=== PATIENT | male | born 1945 | race Caucasian/White ===

== ENCOUNTER 2016-11-15 21:33 | Inpatient (IN) ==
--- NOTE | 2016-11-15 22:03 | Emergency Department Note ---
Disposition Clinical Impression: Pancreatitis Qualifiers: Chronicity: acute Pancreatitis type: unspecified pancreatitis type Acute pancreatitis complication: unspecified Qualified Code(s): K85.90 - Acute pancreatitis without necrosis or infection, unspecified Abdominal pain Qualifiers: Abdominal location: epigastric Qualified Code(s): R10.13 - Epigastric pain Disposition: Admitted As Inpatient Condition: Fair Time of Disposition: 23:58 Abdominal Pain HPI - General Chief Complaint: ED Abdominal Pain Stated Complaint: Abdominal Pain Time Seen by Provider: 11/15/16 21:37 Source: patient, EMS Mode of arrival: EMS Limitations: no limitations Nursing Notes Reviewed: Yes Vital Signs Reviewed: Yes - History of Present Illness HPI Narrative: Patient presents to the [facility] with the chief complaint of abdominal pain. Patient reports that he had the onset of epigastric abdominal pain approximately 2 days ago. States it has been intermittent since then, mainly epigastric and right upper quadrant, sometimes radiating to the back, associated with intense nausea but no vomiting. Some abdominal distention and foul smelling belching. No diarrhea, melena or hematochezia. Denies any fevers , chills, chest pain, worsening shortness of breath from baseline, worsening pain or swelling in his legs, difficulty urinating, hematuria, penile discharge or testicular pain. Had lab work at the [facility], which included a troponin of 0.00, WBC 12.4, hemoglobin 13.4, platelets 251, CK 46, AST 14, a LT 18, total bilirubin 0.4, direct bilirubin 0.1, alkaline phosphatase 105, albumin 3.1, lipase 326, sodium 145, potassium 4, chloride 104, CO2 33, glucose 128, BUN/creatinine 20, creatinine 1.48. Patient does have a history of nephrectomy secondary to renal cancer. No other known cancers. Does have a history of COPD, CHF, hypertension and diabetes. Reports of these are all fairly well-controlled, and his main complaint is this epigastric abdominal pain and nausea. States he has not had much of an appetite, and tried to eat some toast this morning and got very nauseated, but has been unable to throw up. Patient is also on Coumadin for history of A. fib. Pain Scale: 2 - Related Data Allergies Allergy/AdvReac Type Severity Reaction Status Date / Time bupropion Allergy Hives Verified 11/15/16 21:36 Constitutional: Reports: other (Decreased appetite). Denies: fever Cardiovascular: Denies: chest pain Respiratory: Reports: dyspnea (Chronic, baseline) Gastrointestinal: Reports: abdominal pain, nausea. Denies: vomiting, diarrhea, constipation, hematemesis, melena, hematochezia Genitourinary: Denies: dysuria, testicular pain Musculoskeletal: Denies: back pain, neck pain Integumentary: Denies: rash Neurological: Denies: headache Endocrine: Denies: fatigue Abdominal Pain PMH - Past Medical History Medical history: Reports: CHF, COPD, diabetes, myocardial infarction Male Surgical History: Reports: appendectomy, arthroscopy Psychiatric history: Reports: no psych history - Social History Smoking status: Former smoker Alcohol use: Reports: none Drug use: Reports: none Physical Exam - General Limitations: no limitations General appearance: alert, in no apparent distress, obese - Head Head exam: atraumatic, normocephalic, normal inspection - Eye Eye exam: Present: normal appearance, PERRL, EOMI - ENT ENT exam: mucous membranes dry - Chest Chest inspection: Present: normal inspection, symmetric chest wall rise - Respiratory Respiratory exam: Present: normal lung sounds bilaterally (Decreased although symmetric). Absent: respiratory distress - Cardiovascular Cardiovascular exam: Present: regular rate, irregular rhythm - Abdominal Exam Abdominal exam: Present: soft, tenderness (Epigastric ), distention, diminished bowel sounds, organomegaly (hepatomegaly ). Absent: guarding, rebound, rigidity , normal bowel sounds, Ovalle's sign - Extremities Exam Extremities exam: Present: normal inspection, full ROM, pedal edema (Chronic 1-2 + pitting). Absent: tenderness - Neurological Exam Neurological exam: Present: alert, oriented X3 - Skin Skin exam: Present: warm, dry, intact, normal color Course Course Narrative: 71-year-old male presenting with epigastric pain and nausea for the last 2 days. Does have a history of A. fib, on Coumadin, coronary artery disease, diabetes, hypertension, status post nephrectomy from renal carcinoma, COPD. Patient with slightly elevated lipase at outside facility, it could be related to pancreatitis. We will get a CT abdomen and pelvis. EKG is performed at the [facility] and showed A. fib, rate 75, QTC 446, left axis deviation, will repeat here. Troponin was normal, do not think this is related to cardiac pathology. Lab work was artery completed at the [facility], however, we will add on coags as this was not checked. We will also give antiemetics. - Reevaluation(s) Reevaluation #1: CT consistent with pancreatitis and possible cystic neoplasm in the pancreatic tail. Will admit to the hospitalist service. Patient's nausea is better, but is having abdominal pain. Will order more pain medication at this time. Vital Signs Temperature 98.3 F 11/15/16 21:36 Pulse Rate 74 11/15/16 21:36 Respiratory Rate 18 11/15/16 21:36 Blood Pressure 112/66 11/15/16 21:36 O2 Sat by Pulse Oximetry 100 11/15/16 21:36 Temperature 98.3 F 11/15/16 21:36 Pulse Rate 76 11/16/16 00:32 Respiratory Rate 17 11/16/16 00:32 Blood Pressure 120/47 11/16/16 00:32 O2 Sat by Pulse Oximetry 95 11/16/16 00:32 Oxygen Delivery Oxygen Delivery Nasal Cannula Abdominal Pain - Lab Data Lab Results 11/15/16 11/15/16 Range/Units 22:16 23:18 PT 23.5 H (9.4-12.1) Seconds INR 2.1 APTT 46.6 H (26.0-36.0) Seconds Urine Color Yellow (Yellow) Urine Clarity Clear (Clear) Urine pH 7.5 (5.0-8.0) pH Units Ur Specific [place] 1.018 (1.010-1.025) Urine Protein Negative (Neg-Trace) mg/dL Urine Glucose (UA) Normal (Normal) mg/dL Urine Ketones Negative (Negative) mg/dL Urine Blood Negative (Negative) Urine Nitrite Negative (Negative) Urine Bilirubin Negative (Negative) Urine Urobilinogen Normal (Normal) mg/dL Ur Leukocyte Esterase Negative (Negative) Ur Culture Indicated? NO (NO) S.B.Emeli - Bimal Situation: Demographics, MOA Background: Presenting Complaint, Relevant PMH, Meds, & Allergies Assessment: Vital Signs, Course and respsone to treatment, Exam Concerns, Patient/Family Expectation, Pertinant Lab Results, Outstanding Labs Recommendation: Barrier(s) to disposition, Recommendation based on pending studies, treatments, or consults S.BGina Report Given to: Dr. Earl Wallis Repor Time: 23:58 Attestation Statement - Attestation Attestation: I, Rajan Zuniga MD, personally performed a history and physical exam of the patient and discussed their management with the resident. I reviewed the resident's note and agree with the documented findings, medical decision making , and plan of care. 71-year-old male referred to the emergency department from the [facility] for further evaluation of epigastric abdominal pain. Patient has had the pain several days. Pain is associated with nausea but no actual vomiting. The pain does radiate through to the back. No fever. On examination patient is a well-developed morbidly obese elderly male in no acute distress. He is alert and oriented 3. There is no cyanosis or diaphoresis. Breath sounds are equal bilaterally. Heart irregularly irregular. Abdomen soft with normal bowel sounds. Moderate epigastric tenderness with no guarding or rebound tenderness. [facility]ly elevated lipase. CT of the abdomen and pelvis obtained here and was consistent with focal pancreatitis in the head of the pancreas. There was also a lesion in the tail of the pancreas suspicious for cystic neoplasm. The hospitalist, Dr. Elliott, was consulted and accepted admission of the patient.
[2016-11-15] MEDS ORDERED: Ondansetron 4 MG/2 ML VIAL IVP ONE (22:32)
[2016-11-15 22:33] LABS: INR 2.1; Prothrombin Time 23.5 Seconds (9.4-12.1)
[2016-11-15 22:35] LABS: Activated Partial Thrombo Time 46.6 Seconds (26.0-36.0)
[2016-11-15 23:38] LABS: Bilirubin,Urine Negative (Negative); Blood,Urine Negative (Negative); Clarity,Urine Clear (Clear); Color,Urine Yellow (Yellow); Glucose,Urine (UA) Normal (Normal); Ketones,Urine Negative (Negative); Leukocyte Esterase,Urine Negative (Negative); Nitrite,Urine Negative (Negative); PH,Urine 7.5 pH Units (5.0-8.0); Protein,Urine Negative (Neg-Trace); Specific Gravity,Urine 1.018 (1.010-1.025); Urobilinogen,Urine Normal (Normal)
[2016-11-15] MEDS ORDERED: *HR* HYDROmorphone (PF) 1 MG/ML SYRINGE IVP ONE (23:38)
[2016-11-16] MEDS ORDERED: Naloxone 0.4 MG/ML INJ IVP PRN ×2 (01:38→01:44)
[2016-11-16] MEDS ORDERED: Acetaminophen 325 MG TABLET PO PRN (01:38)
[2016-11-16] MEDS ORDERED: Ondansetron 4 MG/2 ML VIAL IVP PRN (01:38)
[2016-11-16] MEDS ORDERED: *HR* OxyCODONE Immed Rel 5 MG TABLET PO PRN (01:38)
[2016-11-16] MEDS ORDERED: *HR* HYDROmorphone (PF) 1 MG/ML SYRINGE IVP PRN (01:38)
[2016-11-16] MEDS ORDERED: D5% in Water 1,000 ML IVC PRN (01:44)
[2016-11-16] MEDS ORDERED: Dextrose Gel 15 GM PO PRN ×2 (01:44)
[2016-11-16] MEDS ORDERED: *HR* Dextrose 50 % in Water (Syg) 50 ML SYRINGE IVP PRN (01:44)
--- NOTE | 2016-11-16 01:54 | Internal Med History&Physical ---
Date of Encounter: 11/16/16 Time of Encounter: 01:49 Assessment and Plan (1) Acute generalized abdominal pain Current visit: Yes Status: Acute . (2) Acute pancreatitis without necrosis or infection, unspecified Current visit: Yes Status: Acute . 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 (4) Type 2 diabetes mellitus Current visit: Yes Status: Chronic . Qualifiers: Diabetes mellitus complication status: with unspecified complications Diabetes mellitus terminal operator insulin use: without alf use Qualified Code( s): E11.8 - Type 2 diabetes mellitus with unspecified complications (5) Morbid obesity with BMI of 50.0-59.9, adult Current visit: Yes Status: Chronic . (6) ANTONIO (obstructive sleep apnea) Current visit: Yes Status: Chronic . (7) Chronic pain associated with significant psychosocial dysfunction Current visit: Yes Status: Chronic . (8) COPD (chronic obstructive pulmonary disease) Current visit: Yes Status: Chronic . Qualifiers: COPD type: unspecified COPD Qualified Code(s): J44.9 - Chronic obstructive pulmonary disease, unspecified (9) Paroxysmal a-fib Current visit: Yes Status: Chronic . (10) Chronic anticoagulation Current visit: Yes Status: Chronic . Internal Medicine - H&P: HPI Chief complaint: Acute abdominal pain Admitted From: Hospital to Hospital Transfer (Hospital transfer [facility] urgent care to [facility] ED) Plans for Post Hospital Care: Home History of present illness: Mr. Bell is a 71 year old male [facility] patient to [facility] via the emergency department when he arrived by EMS services as a hospital transfer from [facility] urgent care center with complaints of intractable abdominal pain. Patient reported the onset of persisting abdominal pain approximately 2- 3 days prior to presentation. Predominantly epigastric initially intermittent with some right upper quadrant preference. Sometimes radiating to the back. Associated with intense nausea but no emesis. No evidence of any bleeding events. Some abdominal distention and foul smelling belching noted. No diarrhea melena hematochezia. Denied fevers chills or sweats. Denied chest pain up or lower respiratory complaints difficulty breathing or denied difficulty with urination hematuria or flank pain. Denied lower extremity edema or pain. Very poor appetite last several days. Some fatty food intolerance experienced but tried to eat toast morning of presentation which also precipitated nausea. Chronic medical problems included: COPD, CAD/AMI, CHF unspecified, hypertension, type 2 diabetes mellitus, s/p nephrectomy for RCCa, morbid obesity, chronic MSK/pain synd, atrial fibrillation, chronic anticoagulation with Coumadin, former smoker. Studies provided by [facility] prior to transfer included: troponin of 0.00. WBC 12.4 hemoglobin 13.4 platelets 251, 000. CPK 46. AST 14. ALT 18. Total bilirubin 0.4. Direct 0.1. Alkaline phosphatase 105. Albumin 3.1. Lipase 326 metabolic panel noted a CO2 of 33. Glucose 128. Creatinine 1.48. Findings in the ED: Routine urinalysis negative. PT 23.5 INR 2.1 PTT 46.6. Vital signs stable. EKG atrial fibrillation. Rate 75. No acute ischemic changes. CT abdomen demonstrated possible pancreatitis of the pancreatic head. 8mm protuberance of the tail of the pancreas. Concerning for cystic neoplasm. Follow-up recommended. Status post right nephrectomy. Nonobstructive left nephrolithiasis. Diverticulosis of sigmoid colon. Workup and treatment will proceed comprehensively. Orders written. Past Med Surg Social Fam HX - Past Medical History Source: old records reviewed Medical history: arthritis, cancer, CHF, COPD, coronary artery disease, diabetes , hypertension, kidney stones, malignancy, myocardial infarction, valvular heart disease, other (ANTONIO. MORBID OBESITY, BMI>50.) Psychiatric history: no psych history - Past Surgical History Surgical History: appendectomy, arthroscopy (Bilateral Knees), cancer surgery, orthopedic, other (Right Shoulder RCT Repair.), other (EGD. Colonoscopy.) - Social History Smoking Status: Former smoker Smokeless Tobacco Status: No Alcohol use: none Drug use: none Occupational status: unemployed Current living situation: Home, With Family Activity Level: Independent ambulation, Mostly sedentary Recent Out of Country Travel Within the Last 8 Weeks: No Exposure or Possible Exposure to Illness During Travel: No - Family History Mother Brother Living Status: Still Living Hx Family Cardiac Disorders: Yes Hx Family Medical Disorders: Yes Internal Medicine - H&P: Meds Aspirin [Lo-Dose Aspirin EC] 81 mg PO HS 11/16/16 [History] Capsaicin 0.025% 1 appl TP QID PRN 11/16/16 [History] Duloxetine HCl [Cymbalta] 60 mg PO DAILY 11/16/16 [History] Furosemide [Lasix] 40 mg PO BID 11/16/16 [History] Gabapentin [Neurontin] 800 mg PO TID 11/16/16 [History] Ipratropium [Atrovent Inhaler] 2 puff IH DAILY 11/16/16 [History] Metformin [Glucophage] 500 mg PO BID 11/16/16 [History] Methocarbamol [Robaxin] 750 mg PO BID 11/16/16 [History] Metoprolol Tartrate 25 mg PO BID 11/16/16 [History] Morphine [Morphine] 15 mg PO BID 11/16/16 [History] Simvastatin [Zocor] 10 mg PO HS 11/16/16 [History] Tiotropium [Spiriva] 18 mcg IH DAILY 11/16/16 [History] Warfarin [Coumadin] 2.5 mg PO HS 11/16/16 [History] Warfarin [Coumadin] 5 mg PO HS 11/16/16 [History] Allergies bupropion Allergy (Verified 11/15/16 21:36) Hives All Systems PM: A 10-system review of systems was performed and is negative for pertinent findings except as documented above in the HPI. - Constitutional Constitutional: as per HPI, anorexia, malaise, other, no chills, no fever(s), no night sweats - EENT Eyes: as per HPI, no change in vision, no discharge, no pain, no photophobia Ears: as per HPI, no ear discharge, no ear pain, no tinnitus Nose, mouth and throat: as per HPI, no dysphagia, no nasal discharge, no neck pain, no sore throat - Cardiovascular Cardiovascular ROS IM: as per HPI, no chest pain, no diaphoresis, no dyspnea, no lightheadedness, no palpitations, no syncope - Respiratory Respiratory: as per HPI, no cough, no dyspnea, no wheezing, no excessive phlegm production - Gastrointestinal Gastrointestinal: as per HPI, abdominal pain, belching, bloating, cramping, nausea, other, no coffee ground emesis, no constipation, no diarrhea, no heartburn, no hematemesis, no hematochezia, no melena, no vomiting - Genitourinary Genitourinary ROS male: as per HPI - Musculoskeletal Musculoskeletal ROS IM: as per HPI, no numbness, no tingling - Integumentary Integumentary IM: as per HPI, no rash, no unusual bruising - Neurological Neurological ROS: as per HPI, no confusion, no convulsions, no focal weakness, no numbness, no tingling, no tremor(s) - Psychiatric Psychiatric: as per HPI - Endocrine Endocrine IM: as per HPI - Hematologic/Lymphatic Hematologic/Lymphatic: as per HPI, no easy bruising - Allergic/Immunologic Allergic/Immunologic: as per HPI - Constitutional Vitals: Temp Pulse Resp BP Pulse Ox 98.3 F 76 16 120/47 95 11/15/16 21:36 11/16/16 00:32 11/16/16 00:49 11/16/16 00:49 11/16/16 00:32 Vital Signs Temp Pulse Resp BP Pulse Ox 11/16/16 01:55 97.8 F 82 18 118/75 93 11/16/16 00:49 16 120/47 11/16/16 00:32 76 17 120/47 95 11/15/16 23:49 84 16 127/57 97 11/15/16 22:36 82 18 131/65 100 11/15/16 21:36 98.3 F 74 18 112/66 100 Intake and Output 11/15/16 11/15/16 11/16/16 15:59 23:59 07:59 Intake Total 0 / 0 Output Total 0 / 0 Balance 0 / 0 Intake: Oral 0 / 0 Output: Urine 0 / 0 Other: Stool Characteristics Normal for Patient Weight 142.882 kg General appearance: Present: cooperative, mild distress, A&O X 3, morbidly obese , answers questions appropriately - Head Head exam: Present: atraumatic, normocephalic - Eye Eye exam: Present: EOMI, PERRL, conjuntiva pink, sclera anicteric Pupils: Present: normal accommodation, PERRL - ENT ENT exam: Present: mucous membranes moist, normal oropharynx - Neck Neck exam general surgery: Present: supple, trachea midline. Absent: lymphadenopathy - Respiratory Respiratory exam: Present: decreased breath sounds. Absent: accessory muscle use, CTAB, rales, rhonchi, stridor, wheezes - Cardiovascular Cardiovascular exam: Present: distant heart sounds, irregular rhythm, +S1, +S2. Absent: diastolic murmur, gallop, rubs, systolic murmur - GI/Abdominal GI/Abdominal exam: Present: distended, guarding, hypoactive bowel sounds, soft, tenderness, no peritoneal signs. Absent: mass - Extremities Exam Extremities exam: Present: warm, radial pulses palpable and symetrical. Absent : calf tenderness, cyanotic, pedal edema - Neurological Exam Neurological exam: Present: alert, CN II-XII intact, oriented X3, no focal deficits. Absent: pronater drift, facial droop, speech deficit - Psychiatric Psychiatric exam: Present: normal affect, normal mood - Skin Skin exam: Present: dry, intact, warm. Absent: petechiae, rash, urticaria, vesicles Internal Med - H&P Results - Labs Labs: Urine 11/15/16 Range/Units 23:18 Urine Color Yellow (Yellow) Urine Clarity Clear (Clear) Urine pH 7.5 (5.0-8.0) pH Units Ur Specific [place] 1.018 (1.010-1.025) Urine Protein Negative (Neg-Trace) mg/dL Urine Glucose (UA) Normal (Normal) mg/dL Abnormal lab results PT 23.5 Seconds (9.4-12.1) H 11/15/16 22:16 APTT 46.6 Seconds (26.0-36.0) H 11/15/16 22:16 Laboratory Results PT 23.5 Seconds (9.4-12.1) H 11/15/16 22:16 INR 2.1 11/15/16 22:16 APTT 46.6 Seconds (26.0-36.0) H 11/15/16 22:16 Urine Color Yellow (Yellow) 11/15/16 23:18 Urine Clarity Clear (Clear) 11/15/16 23:18 Urine pH 7.5 pH Units (5.0-8.0) 11/15/16 23:18 Ur Specific [place] 1.018 (1.010-1.025) 11/15/16 23:18 Urine Protein Negative mg/dL (Neg-Trace) 11/15/16 23:18 Urine Glucose (UA) Normal mg/dL (Normal) 11/15/16 23:18 Urine Ketones Negative mg/dL (Negative) 11/15/16 23:18 Urine Blood Negative (Negative) 11/15/16 23:18 Urine Nitrite Negative (Negative) 11/15/16 23:18 Urine Bilirubin Negative (Negative) 11/15/16 23:18 Urine Urobilinogen Normal mg/dL (Normal) 11/15/16 23:18 Ur Leukocyte Esterase Negative (Negative) 11/15/16 23:18 Ur Culture Indicated? NO (NO) 11/15/16 23:18 Impressions Abdomen/Pelvis CT 11/15/16 22:01 IMPRESSION: Questionable for focal pancreatitis of the pancreatic head. Correlation with laboratory values is recommended. 8 mm protuberance of the pancreatic tail. Cystic neoplasm is considered. 1 year follow-up CT or MRI is recommended. Status post right nephrectomy. No recurrent mass or adenopathy is identified. Punctate, nonobstructive left nephrolithiasis. Diverticulosis of the sigmoid colon. No acute inflammatory changes. D/ / Anthony Mcnamara MD / Anthony Mcnamara MD Interpreting Provider: Anthony Mcnamara MD
[2016-11-16 03:31] LABS: Basophils % 0.2 %; Eosinophils % 0.1 %; Hematocrit 43.6 % (37.5-50.1); Hemoglobin 13.2 g/dL (12.9-16.9); Immature Granulocytes % 0.6 % (0-4); Lymphocytes # 0.8 K/mcL (0.6-4.6); Lymphocytes % 5.6 %; Mean Corpuscular HGB Conc 30.3 g/dL (31.6-35.5); Mean Corpuscular Hemoglobin 27.3 pg (28.0-33.3); Mean Corpuscular Volume 90.1 fL (83.0-100.0); Mean Platelet Volume 10.3 fL (9.4-12.4); Monocytes # 0.1 K/mcL (0.0-1.3); Monocytes % 0.7 %; Neutrophils # 13.5 K/mcL (1.6-8.9); Platelet Count 239 K/mcL (140-400); Red Blood Count 4.84 M/mcL (4.19-5.50); Red Cell Distribution Width 15.5 % (11.5-14.5); Segmented Neutrophils % 92.8 %
[2016-11-16] MEDS ORDERED: Capsaicin 0.025% 60 GM TUBE TP PRN (03:33)
[2016-11-16 03:34] LABS: INR 2.1; Prothrombin Time 23.5 Seconds (9.4-12.1)
[2016-11-16 03:37] LABS: Activated Partial Thrombo Time 42.1 Seconds (26.0-36.0)
[2016-11-16] MEDS ORDERED: Albuterol 2.5 MG/3 ML NEBULIZER IH PRN (03:41)
[2016-11-16] MEDS ORDERED: Nicotine 21 MG PATCH.TD24 TD PRN (03:41)
[2016-11-16 03:45] LABS: Albumin 3.3 g/dL (3.5-5.0); Albumin/Globulin Ratio 0.9 (1.1-2.2); Bilirubin,Total 0.5 mg/dL (0.2-1.2); Calcium 9.5 mg/dL (8.6-10.8); Chol/HDL Ratio 2.9 (0-4.9); Globulin 3.6 g/dL (2.4-3.5); Magnesium 1.9 mg/dL (1.6-2.6); Phosphorous 3.3 mg/dL (2.3-4.7); Potassium 4.3 mEq/L (3.5-4.5); Total Protein 6.9 g/dL (6.0-8.3)
[2016-11-16] MEDS: 0.9 % Sodium Chloride 1,000 ML IVC SCH ×2 (05:21→22:32)
[2016-11-16] MEDS: Pantoprazole 40 MG VIAL IVP SCH (05:21)
[2016-11-16 07:37] LABS: Amphetamine Screen,Urine Negative ng/mL (Cutoff=1000); Barbiturate Screen,Urine Negative ng/mL (Cutoff=200); Benzodiazepines Screen,Urine Negative ng/mL (Cutoff=200); Cannabinoid Screen,Urine Negative ng/mL (Cutoff = 50); Cocaine Screen,Urine Negative ng/mL (Cutoff= 300); Opiate Screen,Urine Positive ng/mL (Cutoff=300); Phencyclidine Screen,Urine Negative ng/mL (Cutoff=25)
[2016-11-16] MEDS: Ipratropium/Albuterol Neb 3 ML IH SCH ×4 (08:03→23:38)
[2016-11-16] MEDS: Insulin LISPRO 300 UNITS/3 ML VIAL SQ SCH ×3 (08:08→17:59)
[2016-11-16] MEDS: Multivit/Ca/Min/Fe/FA 1 TAB TABLET PO SCH (08:12)
[2016-11-16] MEDS: *HR* Morphine Sulfate SR (12 HR) 15 MG TABLET.ER PO SCH ×2 (08:12→21:25)
[2016-11-16] MEDS: Folic Acid 1 MG TABLET PO SCH (08:12)
[2016-11-16] MEDS: Gabapentin 400 MG CAPSULE PO SCH ×3 (08:12→21:25)
[2016-11-16] MEDS: Methocarbamol 750 MG TABLET PO SCH ×2 (08:13→21:25)
[2016-11-16] MEDS: Thiamine (B-1) 100 MG TABLET PO SCH (08:13)
--- NOTE | 2016-11-16 13:58 | Internal Med Progress Note ---
Date of Encounter: 11/16/16 Time of Encounter: 10:00 - Assessment and plan (1) Acute pancreatitis without necrosis or infection, unspecified Current Visit: Yes Status: Acute Assessment and plan: Pain better. We will get ultrasound of the abdomen. Lipid profile normal. Qualifiers: Pancreatitis type: unspecified pancreatitis type Qualified Code(s): K85.90 - Acute pancreatitis without necrosis or infection, unspecified (2) Acute generalized abdominal pain Current Visit: Yes Status: Acute (3) Morbid obesity with BMI of 50.0-59.9, adult Current Visit: Yes Status: Chronic (4) ANTONIO (obstructive sleep apnea) Current Visit: Yes Status: Chronic (5) Paroxysmal a-fib Current Visit: Yes Status: Chronic (6) Chronic anticoagulation Current Visit: Yes Status: Chronic - Subjective Interval history: Patient's abdominal pain is improving. Nausea improved. - Constitutional Vitals: Temp Pulse Resp BP Pulse Ox 97.6 F 73 14 108/64 98 11/16/16 10:18 11/16/16 10:18 11/16/16 11:40 11/16/16 10:18 11/16/16 11:40 General appearance: Present: cooperative, mild distress, A&O X 3, morbidly obese , answers questions appropriately - GI/Abdominal GI/Abdominal exam: Present: normal bowel sounds, soft, no peritoneal signs. Absent: distended, tenderness Internal Medicine: Result - Labs CBC & Chem 7: 11/16/16 03:09 11/16/16 03:09 Labs: Short CBC 11/16/16 Range/Units 03:09 WBC 14.5 H (4.3-11.1) K/mcL Hgb 13.2 (12.9-16.9) g/dL Hct 43.6 (37.5-50.1) % Plt Count 239 (140-400) K/mcL Neutrophils # 13.5 H (1.6-8.9) K/mcL BMP 11/16/16 03:09 Sodium 141 Potassium 4.3 Chloride 102 Carbon Dioxide 29 BUN 23 Creatinine 1.70 H Glucose 171 H Calcium 9.5 Cardiac Enzymes 11/16/16 11/16/16 Range/Units 03:09 09:37 Troponin I 0.01 0.00 (0-0.03) ng/mL Liver Function 11/16/16 Range/Units 03:09 Total Bilirubin 0.5 (0.2-1.2) mg/dL AST 15 (5-34) Units/L ALT 13 (0-55) Units/L Alkaline Phosphatase 112 (38-126) Units/L Albumin 3.3 L (3.5-5.0) g/dL - ABG Interpretation ABG results: PT/INR, D-dimer PT 23.5 Seconds (9.4-12.1) H 11/16/16 03:09 Consult Discharge Plan - Plan [facility]Primary Care Provider[facility] - - Attending Attestation This document has been at least partially created by [employer] recognition technology by Dr. Waggoner. Errors in grammar, wording or other phrases may exist. If errors are found after the documentation is signed, they will be addressed individually in the addendum section of this document when appropriate.
[2016-11-16] MEDS ORDERED: Warfarin perPT PO PRN (18:00)
--- NOTE | 2016-11-16 19:55 | Electrocardiograph Report ---
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
[2016-11-16] MEDS ORDERED: Insulin LISPRO 300 UNITS/3 ML VIAL SQ SCH (21:00)
[2016-11-16] MEDS ORDERED: Aspirin Enteric Coated 81 MG Tablet PO SCH (21:00)
[2016-11-16] MEDS: *HR* Warfarin 2.5 MG TABLET PO SCH (21:25)
[2016-11-17] MEDS: Ipratropium/Albuterol Neb 3 ML IH SCH ×3 (04:08→15:26)
[2016-11-17 05:09] LABS: Prothrombin Time 22.1 Seconds (9.4-12.1)
[2016-11-17] MEDS: Pantoprazole 40 MG VIAL IVP SCH (06:57)
[2016-11-17] MEDS: Gabapentin 400 MG CAPSULE PO SCH ×2 (08:25→15:10)
[2016-11-17] MEDS: Insulin LISPRO 300 UNITS/3 ML VIAL SQ SCH ×3 (08:25→16:03)
[2016-11-17] MEDS: Multivit/Ca/Min/Fe/FA 1 TAB TABLET PO SCH (08:25)
[2016-11-17] MEDS: Thiamine (B-1) 100 MG TABLET PO SCH (08:26)
[2016-11-17] MEDS: Folic Acid 1 MG TABLET PO SCH (08:26)
[2016-11-17] MEDS: Methocarbamol 750 MG TABLET PO SCH (08:26)
[2016-11-17] MEDS: *HR* Morphine Sulfate SR (12 HR) 15 MG TABLET.ER PO SCH (08:26)
--- NOTE | 2016-11-17 09:14 | Discharge Summary ---
Date of Encounter: 11/17/16 Time of Encounter: 09:09 - Discharge Diagnosis (1) Acute pancreatitis without necrosis or infection, unspecified Priority: Primary Status: Acute Qualifiers: Pancreatitis type: idiopathic Qualified Code(s): K85.00 - Idiopathic acute pancreatitis without necrosis or infection (2) Acute generalized abdominal pain Priority: Secondary Status: Acute (3) Morbid obesity with BMI of 50.0-59.9, adult Priority: Secondary Status: Chronic (4) ANTONIO (obstructive sleep apnea) Priority: Secondary Status: Chronic (5) Paroxysmal a-fib Priority: Secondary Status: Chronic (6) Chronic anticoagulation Priority: Secondary Status: Chronic - Discharge Medications Home Medications: Albuterol Sulfate [Proair Hfa] 2 puff IH Q4H PRN 11/16/16 [History] Allopurinol [Zyloprim 300 MG] 300 mg PO DAILY 11/16/16 [History] Aspirin [Lo-Dose Aspirin EC] 81 mg PO HS 11/16/16 [History] Budesonide/Formoterol 160/4.5 [Symbicort 160/4.5] 2 puff IH BID 11/16/16 [ History] Duloxetine HCl [Cymbalta] 60 mg PO DAILY 11/16/16 [History] Fluticasone Propionate Nasal [Flonase] 50 mcg NS DAILY 11/16/16 [History] Furosemide [Lasix] 40 mg PO BID 11/16/16 [History] Gabapentin [Neurontin] 800 mg PO QID 11/16/16 [History] Lidocaine 4% CRM (LMX) [Lmx 4] 1 appl TP TID PRN 11/16/16 [History] Lisinopril [Zestril] 20 mg PO DAILY 11/16/16 [History] Metformin [Glucophage] 500 mg PO BID 11/16/16 [History] Methocarbamol [Robaxin] 1,500 mg PO BID 11/16/16 [History] Metoprolol [Lopressor] 12.5 mg PO BID 11/16/16 [History] Morphine 15 mg PO BID 11/16/16 [History] Mupirocin 1 appl TP BID 11/16/16 [History] Naproxen [Naprosyn] 500 mg PO BID 11/16/16 [History] Warfarin [Coumadin] 2.5 mg PO SUMOTUWETHSA 11/16/16 [History] Warfarin [Coumadin] 5 mg PO FR 11/16/16 [History] Allergies/Adverse Reactions: Allergies bupropion Allergy (Verified 11/15/16 21:36) Hives - Notes to Outpatient Provider Follow-up with CT PET scan CT scan imaging of the abdomen for abnormal pancreatic lesion in the pancreatic tail measuring about 8 mm in size. Date of admission: 11/16/16 14:24 [facility] Discharging clinician: Cameron Waggoner Anticipated date of discharge: 11/17/16 - Patient Status Disposition: Home, Self-Care Condition: Good Functional capacity at discharge: independent ambulation Overall status at discharge: patient is progressing back to baseline - Discharge Instructions Instructions: Pancreatitis (DC), Chronic Obstructive Pulmonary Disease (DC) Follow Up With: [facility] [Primary Care Provider[facility] - - Diet and Activity Activity: wear oxygen at all times Diet: diabetic diet, low fat, low cholesterol, low salt diet Hospital course: Mr. Bell is a 71 year old male with history of morbid obesity, paroxysmal atrial fibrillation on chronic anticoagulation was admitted here with acute pancreatitis and generalized abdominal pain. On initial presentation his lipase level was elevated. Patient was kept nothing by mouth. CT scan of the abdomen and pelvis was done which showed some inflammation in the pancreatic head and 8 mm abnormal lesion in the pancreatic tail for which follow-up with repeat imaging in a year was recommended. Patient also underwent an ultrasound of the abdomen which did not show any gallstones. Patient had been on statin for possible hypercholesterolemia did however his lipid profile showed normal cholesterol levels. As such I am stopping his statin as it can also cause pancreatitis. Most likely cause for the patient's pancreatitis is idiopathic. Currently the patient is tolerating diet well. No longer having any abdominal pain. He is stable to be discharged home. He understands the need to follow up with us as primary care provider regarding the abnormal lesion in the pancreatic tail with repeat CT scan. - Time Spent with Patient Total time spent providing and/or coordinating discharge services: Less than 30 minutes (25 min) - Constitutional Vitals: Temp Pulse Resp BP Pulse Ox 97.5 F L 58 16 108/55 95 11/17/16 07:25 11/17/16 07:25 11/17/16 07:25 11/17/16 07:25 11/17/16 07:25 General appearance: Present: cooperative, A&O X 3, morbidly obese, pleasant, no acute distress, answers questions appropriately - Respiratory Respiratory exam: Present: CTAB. Absent: accessory muscle use, rales, rhonchi, wheezes - Cardiovascular Cardiovascular exam: Present: RRR, +S1, +S2. Absent: diastolic murmur, gallop, rubs, systolic murmur - GI/Abdominal GI/Abdominal exam: Present: normal bowel sounds, soft, no peritoneal signs. Absent: distended, tenderness - Attending Attestation This document has been at least partially created by Motally recognition technology by Dr. Waggoner. Errors in grammar, wording or other phrases may exist. If errors are found after the documentation is signed, they will be addressed individually in the addendum section of this document when appropriate.
[2016-11-17 15:33] VITALS: BP 106/62
[2016-11-17] MEDS: *HR* Warfarin 2.5 MG TABLET PO SCH (17:56)
[2016-11-18] MEDS ORDERED: *HR* Warfarin 5 MG TABLET PO SCH (18:00)
== END 2016-11-17 18:27 | disposition home or self-care (01) | DRG 439 ==
LOC: EMEROO 21:33 → 3ANU 21:33 → SUATTDRO 11-16 00:25 → 3NENU 11-16 01:06
PROVIDERS: ADMIT Internal Medicine; ATTEND Internal Medicine

== ENCOUNTER 2016-11-28 10:58 | Inpatient (IN) ==
--- NOTE | 2016-11-28 12:35 | Emergency Department Note ---
Disposition Clinical Impression: Altered level of consciousness, Hallucination Disposition: Admitted As Inpatient Condition: Good [facility]errals: [facility] [Primary Care Provider] - Forms: ED Satisfaction Letter Time of Disposition: 16:19 General Adult HPI - General Chief complaint: ED Altered Mental Status Stated complaint: medication reaction Time Seen by Provider: 11/28/16 11:35 Source: patient, family Limitations: altered mental status Nursing Notes Reviewed: Yes Vital Signs Reviewed: Yes - History of Present Illness HPI Narrative: Now patient presents emergency department with his . He states he is having visual and audio hallucinations. He states he has a recent history of pancreatitis and he was discharged from the hospital form was hallucinating at that time as well. He states he did resolve however he is unaware of how long he has been hallucinating this time. The states that she thinks that it has been since 5 days ago. He denies any SI or HI. He states the voices are not mean. Pain Scale: 0 - Related Data Home Medications Medication Instructions Recorded Confirmed Albuterol Sulfate [Proair Hfa] 2 puff IH Q4H PRN 11/16/16 11/28/16 Allopurinol [Zyloprim 300 MG] 300 mg PO DAILY 11/16/16 11/28/16 Aspirin [Lo-Dose Aspirin EC] 81 mg PO HS 11/16/16 11/28/16 Budesonide/Formoterol 160/4.5 2 puff IH BID 11/16/16 11/28/16 [Symbicort 160/4.5] Duloxetine HCl [Cymbalta] 60 mg PO DAILY 11/16/16 11/28/16 Furosemide [Lasix] 40 mg PO BID 11/16/16 11/28/16 Gabapentin [Neurontin] 800 mg PO TID 11/16/16 11/28/16 Lisinopril [Zestril] 20 mg PO DAILY 11/16/16 11/28/16 Metformin [Glucophage] 500 mg PO BID 11/16/16 11/28/16 Methocarbamol [Robaxin] 1,500 mg PO BID 11/16/16 11/28/16 Metoprolol [Lopressor] 25 mg PO BID 11/16/16 11/28/16 Morphine 15 mg PO BID 11/16/16 11/28/16 Mupirocin 1 appl TP BID 11/16/16 11/28/16 Warfarin [Coumadin] 2.5 mg PO SUMOTUWETHSA 11/16/16 11/28/16 Warfarin [Coumadin] 5 mg PO FR 11/16/16 11/28/16 Cetirizine HCl [Zyrtec] 10 mg PO DAILY 11/28/16 11/28/16 Guaifenesin [Mucus Relief] 400 mg PO TID 11/28/16 11/28/16 Ondansetron HCl [Zofran] 4 mg PO Q8H PRN 11/28/16 11/28/16 Allergies Allergy/AdvReac Type Severity Reaction Status Date / Time bupropion Allergy Hives Verified 11/15/16 21:36 All systems ED: reviewed and negative except as stated. Constitutional: Denies: fever, chills ENT ED: Denies: dysphagia Cardiovascular: Denies: chest pain, palpitations, dyspnea on exertion, edema, syncope Respiratory: Denies: cough, dyspnea Gastrointestinal: Denies: abdominal pain, nausea, vomiting, diarrhea, hematemesis Genitourinary: Reports: urgency (Decreased frequency.). Denies: dysuria, hematuria Musculoskeletal: Denies: back pain, neck pain Neurological: Reports: weakness. Denies: headache Psychiatric: Reports: auditory hallucinations, visual hallucinations Past Medical History - Past Medical History Medical history: Reports: arthritis, cancer, CHF, COPD, coronary artery disease , diabetes, hypertension, kidney stones, malignancy, myocardial infarction, valvular heart disease, other Surgical history: Reports: appendectomy, arthroscopy (Bilateral Knees), cancer surgery, orthopedic, other (Right Shoulder RCT Repair.), other (EGD. Colonoscopy.) Psychiatric history: Reports: depression - Social History Smoking Status: Former smoker Smokeless Tobacco Status: No Alcohol use: Reports: none Drug use: Reports: none Physical Exam - General Limitations: altered mental status General appearance: alert, in no apparent distress - Head Head exam: atraumatic, normocephalic, normal inspection - Eye Eye exam: Present: normal appearance, PERRL, EOMI. Absent: scleral icterus - ENT ENT exam: normal exam, normal oropharynx, mucous membranes moist - Neck Neck exam: Present: normal inspection, full ROM, trachea midline. Absent: tenderness, meningismus, lymphadenopathy - Chest Chest inspection: Present: normal inspection, symmetric chest wall rise. Absent : tenderness - Respiratory Respiratory exam: Present: normal lung sounds bilaterally. Absent: respiratory distress - Cardiovascular Cardiovascular exam: Present: regular rate, normal rhythm, normal heart sounds - Abdominal Exam Abdominal exam: Present: soft, Non-Tender, normal bowel sounds, other (Limited due to patient's body habitus.). Absent: organomegaly, Ovalle's sign, Rovsing' s sign, tenderness at McBurney's Point - Extremities Exam Extremities exam: Present: normal inspection, full ROM, normal capillary refill. Absent: tenderness, pedal edema - Back Exam Back exam: Present: normal inspection, full ROM. Absent: tenderness - Neurological Exam Neurological exam: Present: alert, oriented X3 - Psychiatric Psychiatric exam: Present: normal affect, normal mood, other (Reports visual and audio hallucinations.) - Skin Skin exam: Present: warm, dry, intact, normal color. Absent: rash, cyanosis, diaphoresis Course Course Narrative: Overweight male patient presented to the emergency department with an unknown day history of hallucinations. The hallucinations are Visual and auditory. He states he sees a woman in a room that is nursing a baby. He also states that the voices are telling him that the leads are on his body from his grandmother and his grandfather. He is alert and oriented 3 and is not suicidal or homicidal. He is able to follow commands appropriately. He has no complaints. He denies any chest pain or shortness of breath. Denies any abdominal pain nausea vomiting or diarrhea. He did have a recent admission for pancreatitis that he said he was hallucinating then as well. His states she thinks that hallucinations came back 5 days ago after he had a medication change. She states he is now taking Guifanisen, Zofran, loratadine. We will get a CT of patient's head as well as a basic lab workup. Including a UA urine drug screen ethanol and ammonia level. I anticipate admission. He is resting comfortably with no complaints at this time. - Reevaluation(s) Reevaluation #1: Patient has had a couple episodes of low blood pressure in the 90s. We will give him a fluid bolus. Time: 16:09 - Consultations Consultation #1: Dr. Lynn except the patient in stable condition. Time: 16:09 Vital Signs Temperature 97.9 F 11/28/16 11:30 Pulse Rate 80 11/28/16 11:30 Respiratory Rate 16 04/24/17 11:30 Blood Pressure 93/47 11/28/16 11:30 O2 Sat by Pulse Oximetry 90 11/28/16 11:30 Temperature 97.9 F 11/28/16 11:30 Pulse Rate 56 11/28/16 15:19 Respiratory Rate 18 11/28/16 15:19 Blood Pressure 90/50 11/28/16 15:19 O2 Sat by Pulse Oximetry 95 11/28/16 15:19 Oxygen Delivery Oxygen Delivery Nasal Cannula Medical Decision Making - Medical Records Medical records reviewed: Yes I reviewed the patient's medical records. - Lab Data Lab results reviewed: Yes I reviewed the patient's lab results. Result diagrams: 11/28/16 12:36 11/28/16 12:36 Lab Results 11/28/16 11/28/16 11/28/16 Range/Units 12:36 12:36 12:36 WBC 12.2 H (4.3-11.1) K/mcL RBC 4.54 (4.19-5.50) M/mcL Hgb 12.6 L (12.9-16.9) g/dL Hct 42.7 (37.5-50.1) % MCV 94.1 (83.0-100.0) fL MCH 27.8 L (28.0-33.3) pg MCHC 29.5 L (31.6-35.5) g/dL RDW 15.6 H (11.5-14.5) % Plt Count 232 (140-400) K/mcL MPV 10.1 (9.4-12.4) fL Immature Gran % 0.7 (0-4) % Seg Neutrophils % 72.1 % Lymphocytes % 15.4 % Monocytes % 8.3 % Eosinophils % 2.9 % Basophils % 0.6 % Neutrophils # 8.8 (1.6-8.9) K/mcL Lymphocytes # 1.9 (0.6-4.6) K/mcL Monocytes # 1.0 (0.0-1.3) K/mcL Eosinophils # 0.4 (0.0-0.6) K/mcL Basophils # 0.1 (0.0-0.2) K/mcL Sodium 141 (136-145) mEq/L Potassium 4.8 H (3.5-4.5) mEq/L Chloride 104 (98-109) mEq/L Carbon Dioxide 31 H (19-29) mEq/L BUN 33 H (8-26) mg/dL Creatinine 1.85 H (0.72-1.25) mg/dL Est GFR ( Amer) 44 L (> 60) Est GFR (Non-Af Amer) 36 L (> 60) BUN/Creatinine Ratio 18 (6-26) Glucose 101 H (70-99) mg/dL POC Glucose (58-89) Calculated Osmolality 299 (280-300) Lactic Acid (0.5-2.2) mmol/L Calcium 8.6 (8.6-10.8) mg/dL Total Bilirubin 0.4 (0.2-1.2) mg/dL Direct Bilirubin 0.2 (0.0-0.5) mg/dL Indirect Bilirubin 0.2 (0.0-1.2) mg/dL AST 13 (5-34) Units/L ALT 14 (0-55) Units/L Alkaline Phosphatase 94 (38-126) Units/L Ammonia 15 L (18-72) mcmol/L Troponin I (0-0.03) ng/mL Serum Total Protein 6.2 (6.0-8.3) g/dL Albumin 2.9 L (3.5-5.0) g/dL Globulin 3.3 (2.4-3.5) g/dL Albumin/Globulin Ratio 0.9 L (1.1-2.2) TSH 1.272 (0.350-4.840) mcIU/mL Urine Color (Yellow) Urine Clarity (Clear) Urine pH (5.0-8.0) pH Units Ur Specific [place] (1.010-1.025) Urine Protein (Neg-Trace) mg/dL Urine Glucose (UA) (Normal) mg/dL Urine Ketones (Negative) mg/dL Urine Blood (Negative) Urine Nitrite (Negative) Urine Bilirubin (Negative) Urine Urobilinogen (Normal) mg/dL Ur Leukocyte Esterase (Negative) Urine Microscopic RBC (0-3) per hpf Urine Microscopic WBC (0-3) per hpf Ur Squamous Epith Cells (None-Few) per lpf Urine Bacteria (None-Few) per hpf Hyaline Casts (None-Few) per lpf Ur Culture Indicated? (NO) Urine Opiates Screen (Kpnikk=299) ng/mL Ur Barbiturates Screen (Ddyekc=267) ng/mL Ur Phencyclidine Scrn (Cutoff=25) ng/mL Ur Amphetamines Screen (Sbqkiu=0310) ng/mL U Benzodiazepines Scrn (Qsoqpq=458) ng/mL Urine Cocaine Screen (Cutoff= 300) ng/mL U Marijuana (THC) Screen (Cutoff = 50) ng/mL Ethyl Alcohol < 10 (0-10) mg/dL 11/28/16 11/28/16 11/28/16 Range/Units 12:36 12:45 13:00 WBC (4.3-11.1) K/mcL RBC (4.19-5.50) M/mcL Hgb (12.9-16.9) g/dL Hct (37.5-50.1) % MCV (83.0-100.0) fL MCH (28.0-33.3) pg MCHC (31.6-35.5) g/dL RDW (11.5-14.5) % Plt Count (140-400) K/mcL MPV (9.4-12.4) fL Immature Gran % (0-4) % Seg Neutrophils % % Lymphocytes % % Monocytes % % Eosinophils % % Basophils % % Neutrophils # (1.6-8.9) K/mcL Lymphocytes # (0.6-4.6) K/mcL Monocytes # (0.0-1.3) K/mcL Eosinophils # (0.0-0.6) K/mcL Basophils # (0.0-0.2) K/mcL Sodium (136-145) mEq/L Potassium (3.5-4.5) mEq/L Chloride (98-109) mEq/L Carbon Dioxide (19-29) mEq/L BUN (8-26) mg/dL Creatinine (0.72-1.25) mg/dL Est GFR ( Amer) (> 60) Est GFR (Non-Af Amer) (> 60) BUN/Creatinine Ratio (6-26) Glucose (70-99) mg/dL POC Glucose 87 (58-89) Calculated Osmolality (280-300) Lactic Acid 1.5 (0.5-2.2) mmol/L Calcium (8.6-10.8) mg/dL Total Bilirubin (0.2-1.2) mg/dL Direct Bilirubin (0.0-0.5) mg/dL Indirect Bilirubin (0.0-1.2) mg/dL AST (5-34) Units/L ALT (0-55) Units/L Alkaline Phosphatase (38-126) Units/L Ammonia (18-72) mcmol/L Troponin I 0.01 (0-0.03) ng/mL Serum Total Protein (6.0-8.3) g/dL Albumin (3.5-5.0) g/dL Globulin (2.4-3.5) g/dL Albumin/Globulin Ratio (1.1-2.2) TSH (0.350-4.840) mcIU/mL Urine Color (Yellow) Urine Clarity (Clear) Urine pH (5.0-8.0) pH Units Ur Specific [place] (1.010-1.025) Urine Protein (Neg-Trace) mg/dL Urine Glucose (UA) (Normal) mg/dL Urine Ketones (Negative) mg/dL Urine Blood (Negative) Urine Nitrite (Negative) Urine Bilirubin (Negative) Urine Urobilinogen (Normal) mg/dL Ur Leukocyte Esterase (Negative) Urine Microscopic RBC (0-3) per hpf Urine Microscopic WBC (0-3) per hpf Ur Squamous Epith Cells (None-Few) per lpf Urine Bacteria (None-Few) per hpf Hyaline Casts (None-Few) per lpf Ur Culture Indicated? (NO) Urine Opiates Screen (Knaubv=898) ng/mL Ur Barbiturates Screen (Trjbia=675) ng/mL Ur Phencyclidine Scrn (Cutoff=25) ng/mL Ur Amphetamines Screen (Mhlpke=7882) ng/mL U Benzodiazepines Scrn (Ykpmgu=195) ng/mL Urine Cocaine Screen (Cutoff= 300) ng/mL U Marijuana (THC) Screen (Cutoff = 50) ng/mL Ethyl Alcohol (0-10) mg/dL 11/28/16 11/28/16 Range/Units 14:46 14:46 WBC (4.3-11.1) K/mcL RBC (4.19-5.50) M/mcL Hgb (12.9-16.9) g/dL Hct (37.5-50.1) % MCV (83.0-100.0) fL MCH (28.0-33.3) pg MCHC (31.6-35.5) g/dL RDW (11.5-14.5) % Plt Count (140-400) K/mcL MPV (9.4-12.4) fL Immature Gran % (0-4) % Seg Neutrophils % % Lymphocytes % % Monocytes % % Eosinophils % % Basophils % % Neutrophils # (1.6-8.9) K/mcL Lymphocytes # (0.6-4.6) K/mcL Monocytes # (0.0-1.3) K/mcL Eosinophils # (0.0-0.6) K/mcL Basophils # (0.0-0.2) K/mcL Sodium (136-145) mEq/L Potassium (3.5-4.5) mEq/L Chloride (98-109) mEq/L Carbon Dioxide (19-29) mEq/L BUN (8-26) mg/dL Creatinine (0.72-1.25) mg/dL Est GFR ( Amer) (> 60) Est GFR (Non-Af Amer) (> 60) BUN/Creatinine Ratio (6-26) Glucose (70-99) mg/dL POC Glucose (58-89) Calculated Osmolality (280-300) Lactic Acid (0.5-2.2) mmol/L Calcium (8.6-10.8) mg/dL Total Bilirubin (0.2-1.2) mg/dL Direct Bilirubin (0.0-0.5) mg/dL Indirect Bilirubin (0.0-1.2) mg/dL AST (5-34) Units/L ALT (0-55) Units/L Alkaline Phosphatase (38-126) Units/L Ammonia (18-72) mcmol/L Troponin I (0-0.03) ng/mL Serum Total Protein (6.0-8.3) g/dL Albumin (3.5-5.0) g/dL Globulin (2.4-3.5) g/dL Albumin/Globulin Ratio (1.1-2.2) TSH (0.350-4.840) mcIU/mL Urine Color Yellow (Yellow) Urine Clarity Clear (Clear) Urine pH 5.0 (5.0-8.0) pH Units Ur Specific [place] 1.020 (1.010-1.025) Urine Protein Negative (Neg-Trace) mg/dL Urine Glucose (UA) Normal (Normal) mg/dL Urine Ketones Negative (Negative) mg/dL Urine Blood Negative (Negative) Urine Nitrite Negative (Negative) Urine Bilirubin Negative (Negative) Urine Urobilinogen Normal (Normal) mg/dL Ur Leukocyte Esterase Trace H (Negative) Urine Microscopic RBC 0-3 (0-3) per hpf Urine Microscopic WBC 3-5 H (0-3) per hpf Ur Squamous Epith Cells Few (None-Few) per lpf Urine Bacteria Few (None-Few) per hpf Hyaline Casts Few (None-Few) per lpf Ur Culture Indicated? YES A (NO) Urine Opiates Screen Positive H (Vhspgx=754) ng/mL Ur Barbiturates Screen Negative (Fxnoyc=890) ng/mL Ur Phencyclidine Scrn Negative (Cutoff=25) ng/mL Ur Amphetamines Screen Negative (Lohnef=4415) ng/mL U Benzodiazepines Scrn Negative (Xjfmll=946) ng/mL Urine Cocaine Screen Negative (Cutoff= 300) ng/mL U Marijuana (THC) Screen Negative (Cutoff = 50) ng/mL Ethyl Alcohol (0-10) mg/dL - Radiology Data Radiology results reviewed: Yes I reviewed the patient's radiology results. Chest X-Ray 11/28/16 12:27 IMPRESSION: Cardiomegaly with left basilar atelectasis D/ / Romario Cuellar MD / Romario Cuellar MD Interpreting Provider: Romario Cuellar MD Head CT 11/28/16 12:28 IMPRESSION: No acute intracranial abnormality. Paranasal sinus disease as above. D/ / Van Yeung MD / Van Yeung MD Interpreting Provider: Van Yeung MD - EKG Data EKG #1 EKG attestation: Yes I reviewed and interpreted this EKG. EKG results narrative: Atrial fibrillation at a rate of 69. Sikh is 108. QT is 397. QTC is 417. No significant change from previous EKG dated 11/15/2016. No signs of acute ischemia.
[2016-11-28 12:49] LABS: Basophils # 0.1 K/mcL (0.0-0.2); Basophils % 0.6 %; Eosinophils # 0.4 K/mcL (0.0-0.6); Eosinophils % 2.9 %; Hematocrit 42.7 % (37.5-50.1); Hemoglobin 12.6 g/dL (12.9-16.9); Immature Granulocytes % 0.7 % (0-4); Lymphocytes # 1.9 K/mcL (0.6-4.6); Lymphocytes % 15.4 %; Mean Corpuscular HGB Conc 29.5 g/dL (31.6-35.5); Mean Corpuscular Hemoglobin 27.8 pg (28.0-33.3); Mean Corpuscular Volume 94.1 fL (83.0-100.0); Mean Platelet Volume 10.1 fL (9.4-12.4); Monocytes % 8.3 %; Neutrophils # 8.8 K/mcL (1.6-8.9); Platelet Count 232 K/mcL (140-400); Red Blood Count 4.54 M/mcL (4.19-5.50); Red Cell Distribution Width 15.6 % (11.5-14.5); Segmented Neutrophils % 72.1 %
[2016-11-28 13:01] LABS: Alanine Aminotransferase 14 Units/L (0-55); Albumin 2.9 g/dL (3.5-5.0); Albumin/Globulin Ratio 0.9 (1.1-2.2); Alkaline Phosphatase 94 Units/L (38-126); Aspartate Amino Transferase 13 Units/L (5-34); BUN/Creatinine Ratio 18 (6-26); Bilirubin,Direct 0.2 mg/dL (0.0-0.5); Bilirubin,Indirect 0.2 mg/dL (0.0-1.2); Bilirubin,Total 0.4 mg/dL (0.2-1.2); Blood Urea Nitrogen 33 mg/dL (8-26); Calcium 8.6 mg/dL (8.6-10.8); Carbon Dioxide 31 mEq/L (19-29); Chloride 104 mEq/L (98-109); Ethanol < 10 mg/dL (0-10); Globulin 3.3 g/dL (2.4-3.5); Glucose 101 mg/dL (70-99); Osmolality,Calculated 299 (280-300); Potassium 4.8 mEq/L (3.5-4.5); Sodium 141 mEq/L (136-145); Total Protein 6.2 g/dL (6.0-8.3); eGFR For African Americans 44 (> 60); eGFR For Non-African Americans 36 (> 60)
--- NOTE | 2016-11-28 13:04 | Emergency Department Note ---
START Narrative - START START: I examined this patient and my medical decision-making was reviewed with the [employer] RADIO OPERATOR/PA/Advanced Practice Nurse/Resident Physician. I agree with the documented findings, disposition and treatment plan as described except to the extent set forth below. ED attending note: Patient seen with emergency medicine resident Dr. Mcconnell. Please see a copy of his note for details of the H&P, evaluation, management and disposition of this patient. We independently had [id number] contact with the patient Briefly: A 4-year-old male in his electric motorized chair largely wheelchair- bound presents with a "hallucinations" and medic and medication reaction". Patient recently started on several medicines has been having audio and visual hallucinations are not threatening. I said this has happened before when he had pancreatitis and was admitted to the hospital. Patient denies fevers chills abdominal pain or vomiting. EKG shows no acute ischemic changes. Patient will get a head CT and lab work. Initially had a blood pressure which was borderline hypotensive at 95 and 99 systolic respectively repeated was 103. Patient is workup is in progress. Admission is anticipated. Disposition pending.
[2016-11-28 13:16] LABS: Thyroid Stimulating Hormone 1.272 mcIU/mL (0.350-4.840)
[2016-11-28 14:59] LABS: Bilirubin,Urine Negative (Negative); Blood,Urine Negative (Negative); Clarity,Urine Clear (Clear); Color,Urine Yellow (Yellow); Glucose,Urine (UA) Normal (Normal); Ketones,Urine Negative (Negative); Leukocyte Esterase,Urine Trace (Negative); Nitrite,Urine Negative (Negative); Protein,Urine Negative (Neg-Trace); Urobilinogen,Urine Normal (Normal)
[2016-11-28 15:10] LABS: Amphetamine Screen,Urine Negative ng/mL (Cutoff=1000); Barbiturate Screen,Urine Negative ng/mL (Cutoff=200); Benzodiazepines Screen,Urine Negative ng/mL (Cutoff=200); Cannabinoid Screen,Urine Negative ng/mL (Cutoff = 50); Cocaine Screen,Urine Negative ng/mL (Cutoff= 300); Opiate Screen,Urine Positive ng/mL (Cutoff=300); Phencyclidine Screen,Urine Negative ng/mL (Cutoff=25)
[2016-11-28] MEDS ORDERED: 0.9 % Sodium Chloride 1,000 ML IVC ONE (15:27)
[2016-11-28 15:37] LABS: Bacteria,Urine Few per hpf (None-Few); Hyaline Casts,Urine Few per lpf (None-Few); RBC,Urine 0-3 per hpf (0-3); Squamous Epithelial Cell,Urine Few per lpf (None-Few)
[2016-11-28] MEDS ORDERED: Acetaminophen 325 MG TABLET PO PRN (18:29)
[2016-11-28] MEDS ORDERED: Naloxone 0.4 MG/ML INJ IVP PRN (18:29)
[2016-11-28] MEDS ORDERED: 0.9 % Sodium Chloride 1,000 ML IVC SCH (19:00)
[2016-11-28 19:19] LABS: INR 2.5; Prothrombin Time 27.5 Seconds (9.4-12.1)
[2016-11-28 19:22] LABS: Activated Partial Thrombo Time 46.3 Seconds (26.0-36.0)
[2016-11-28] MEDS ORDERED: D5% in Water 1,000 ML IVC PRN (20:25)
[2016-11-28] MEDS ORDERED: *HR* Dextrose 50 % in Water (Syg) 50 ML SYRINGE IVP PRN (20:25)
[2016-11-28] MEDS ORDERED: Dextrose Gel 15 GM PO PRN ×2 (20:25)
[2016-11-28] MEDS ORDERED: *HR* Warfarin 2.5 MG TABLET PO SCH (20:30)
[2016-11-28] MEDS ORDERED: 0.9 % Sodium Chloride 500 ML IVC ONE (20:38)
[2016-11-28] MEDS ORDERED: Albuterol 2.5 MG/3 ML NEBULIZER IH PRN (21:39)
--- NOTE | 2016-11-28 21:39 | Internal Med History&Physical ---
<Vilma Thompson M - Last Filed: 11/28/16 22:22> Date of Encounter: 11/28/16 Time of Encounter: 21:36 Assessment and Plan (1) Altered level of consciousness Current visit: Yes Status: Acute Patient with hallucinations, dizziness and drowsiness. CT of head negative for acute abnormality. UA concerning for UTI -treat infection. Patient recent started on new medications: zofran, zyrtec and mucinex. They may be interacting with his other medications, so will hold these for now. Also , he is on a high dose of gabapentin at home: 800mg TID, will cut back to BID. Patient has sleep apnea and reports he has not been wearing CPAP as he should the last few nights - CPAP over night tonight. Neurology consult. (2) Hallucination Current visit: Yes Status: Acute Patient with hallucinations, dizziness and drowsiness. CT of head negative for acute abnormality. Patient has sleep apnea and reports he has not been wearing CPAP as he should the last few nights - CPAP over night tonight. Patient recent started on new medications: zofran, zyrtec and mucinex. They may be interacting with his other medications, so will hold these for now. Also , he is on a high dose of gabapentin at home: 800mg TID, will cut back to BID. Neurology consult. (3) UTI (urinary tract infection) Current visit: Yes Status: Acute Patient reports lower urine output today. Urinalysis consistent with infection. WBC elevated to 12.2. IVPB rocephin await culture results. Qualifiers: Urinary tract infection type: acute cystitis Hematuria presence: without hematuria Qualified Code(s): N30.00 - Acute cystitis without hematuria (4) Type 2 diabetes mellitus Current visit: No Status: Chronic diabetic diet hold metformin check blood sugars ACHS sliding scale correction dose ACHS hypoglycemic protocol Qualifiers: Diabetes mellitus complication status: with unspecified complications Diabetes mellitus crester insulin use: without crester use Qualified Code( s): E11.8 - Type 2 diabetes mellitus with unspecified complications (5) ANTONIO (obstructive sleep apnea) Current visit: No Status: Chronic Respiratory therapy consulted for CPAP. (6) COPD (chronic obstructive pulmonary disease) Current visit: No Status: Chronic Patient wears 2.5L of oxygen at home. Patient reporting a productive cough, but denies any increased shortness of breath. Titrate oxygen to maintain O2 sat > 92% duoneb treatments QID albuterol nebulizer Q2hr prn continue home dose of symbicort Qualifiers: COPD type: unspecified COPD Qualified Code(s): J44.9 - Chronic obstructive pulmonary disease, unspecified (7) Paroxysmal a-fib Current visit: No Status: Chronic Patient on coreg for rate control and coumadin for anti-coagulation. Holding coreg due to hypotension. Continuous athletic monitor. Continue home dose of coumadin and monitor INR. (8) Chronic anticoagulation Current visit: No Status: Chronic Patient on coumadin for afib. INR therapeutic at 2.5. Continue home dose of coumadin and monitor INR. (9) DVT prophylaxis Current visit: Yes Status: Acute anti-embolic stockings Patient on coumadin for afib. No additional pharmacologic prophylaxis necessary. Internal Medicine - H&P: HPI Chief complaint: hallucinations Admitted From: Emergency Dept Plans for Post Hospital Care: Home History of present illness: Mr. Bell is a 71 year old male with type 2 diabetes, hypertension, afib on coumadin, COPD, CHF, history of renal cancer s/p right nephrectomy who presented to the ED today with complaints of auditory and visual hallucinations. Patient reports these started 4-5 days ago and seem to be getting worse. He hears dogs barking, water running, and boards being smacked together, and he sees people that aren't there. Patient also reports dizziness , drowsiness and has been sleeping throughout the days. He is also reporting nausea, abdominal pain and constipation. He has been coughing recently and it is productive of yellow sputum. He denies any lightheadedness, chest pain, palpitations, fever, chills or sweats. He reports he was recently hospitalized for pancreatitis (discharged 11/18) and had similar symptoms during his hospitalization but they resolved. He was recently started on gaufenisin, zofran, and cetirizine for his cough. Evaluation in the ED revealed mildly elevated WBC count of 12.2, mild hyperkalemia with potassium of 4.8, elevated BUN of 33 (up from previous of 23), creatinine mildly up from previous of 1.[address] showed no acute intracranial abnormality. CXR showed cardiomegaly with left basilar atelectasis. EKG showed afib. On exam, patient drowsy, but arousable, oriented x 3. Cranial nerves intact, equal strength bilaterally. Heart has irregular rhythm. Lungs have mild rhonchi. Past Med Surg Social Fam HX - Past Medical History Medical history: arthritis, atrial fibrillation, cancer, CHF, COPD, diabetes, hypertension, malignancy, valvular heart disease, other Psychiatric history: depression - Past Surgical History Surgical History: appendectomy, arthroscopy, cancer surgery, orthopedic, other, other - Social History Smoking Status: Former smoker Smokeless Tobacco Status: No Alcohol use: none Drug use: none - Family History Mother Brother Living Status: Still Living Hx Family Cardiac Disorders: Yes Internal Medicine - H&P: Meds Albuterol Sulfate [Proair Hfa] 2 puff IH Q4H PRN 11/16/16 [History] Allopurinol [Zyloprim 300 MG] 300 mg PO DAILY 11/16/16 [History] Aspirin [Lo-Dose Aspirin EC] 81 mg PO HS 11/16/16 [History] Budesonide/Formoterol 160/4.5 [Symbicort 160/4.5] 2 puff IH BID 11/16/16 [ History] Duloxetine HCl [Cymbalta] 60 mg PO DAILY 11/16/16 [History] Furosemide [Lasix] 40 mg PO BID 11/16/16 [History] Gabapentin [Neurontin] 800 mg PO TID 11/16/16 [History] Lisinopril [Zestril] 20 mg PO DAILY 11/16/16 [History] Metformin [Glucophage] 500 mg PO BID 11/16/16 [History] Methocarbamol [Robaxin] 1,500 mg PO BID 11/16/16 [History] Metoprolol [Lopressor] 25 mg PO BID 11/16/16 [History] Morphine 15 mg PO BID 11/16/16 [History] Mupirocin 1 appl TP BID 11/16/16 [History] Warfarin [Coumadin] 2.5 mg PO SUMOTUWETHSA 11/16/16 [History] Warfarin [Coumadin] 5 mg PO FR 11/16/16 [History] Cetirizine HCl [Zyrtec] 10 mg PO DAILY 11/28/16 [History] Guaifenesin [Mucus Relief] 400 mg PO TID 11/28/16 [History] Ondansetron HCl [Zofran] 4 mg PO Q8H PRN 11/28/16 [History] Allergies bupropion Allergy (Verified 11/15/16 21:36) Hives All Systems PM: A 10-system review of systems was performed and is negative for pertinent findings except as documented above in the HPI. - Constitutional Vitals: Temp Pulse Resp BP Pulse Ox 97.6 F 64 18 92/55 98 11/28/16 18:23 11/28/16 18:23 11/28/16 18:23 11/28/16 18:23 11/28/16 20:21 General appearance: Present: A&O X 3, morbidly obese, pleasant, no acute distress - Head Head exam: Present: atraumatic, normocephalic - Eye Eye exam: Present: PERRL, conjuntiva pink, sclera anicteric Pupils: Present: PERRL - Neck Neck exam general surgery: Present: supple, trachea midline. Absent: lymphadenopathy - Respiratory Respiratory exam: Present: CTAB, rhonchi. Absent: accessory muscle use, rales, wheezes - Cardiovascular Cardiovascular exam: Present: irregular rhythm, +S1, +S2. Absent: diastolic murmur, gallop, rubs, systolic murmur - GI/Abdominal GI/Abdominal exam: Present: normal bowel sounds, soft, no peritoneal signs. Absent: distended, tenderness - Extremities Exam Extremities exam: Present: pedal edema (+2 BLE), warm, radial pulses palpable and symetrical. Absent: calf tenderness, cyanotic - Neurological Exam Neurological exam: Present: CN II-XII intact, oriented X3, no focal deficits. Absent: pronater drift, facial droop, speech deficit - Skin Skin exam: Present: dry, intact Internal Med - H&P Results - Labs CBC & Chem 7: 11/28/16 12:36 11/28/16 12:36 Labs: All Lab Results (24 Hours) 11/28/16 11/28/16 11/28/16 Range/Units 12:36 12:36 12:36 WBC 12.2 H (4.3-11.1) K/mcL RBC 4.54 (4.19-5.50) M/mcL Hgb 12.6 L (12.9-16.9) g/dL Hct 42.7 (37.5-50.1) % MCV 94.1 (83.0-100.0) fL MCH 27.8 L (28.0-33.3) pg MCHC 29.5 L (31.6-35.5) g/dL RDW 15.6 H (11.5-14.5) % Plt Count 232 (140-400) K/mcL MPV 10.1 (9.4-12.4) fL Immature Gran % 0.7 (0-4) % Seg Neutrophils % 72.1 % Lymphocytes % 15.4 % Monocytes % 8.3 % Eosinophils % 2.9 % Basophils % 0.6 % Neutrophils # 8.8 (1.6-8.9) K/mcL Lymphocytes # 1.9 (0.6-4.6) K/mcL Monocytes # 1.0 (0.0-1.3) K/mcL Eosinophils # 0.4 (0.0-0.6) K/mcL Basophils # 0.1 (0.0-0.2) K/mcL PT (9.4-12.1) Seconds INR APTT (26.0-36.0) Seconds Sodium 141 (136-145) mEq/L Potassium 4.8 H (3.5-4.5) mEq/L Chloride 104 (98-109) mEq/L Carbon Dioxide 31 H (19-29) mEq/L BUN 33 H (8-26) mg/dL Creatinine 1.85 H (0.72-1.25) mg/dL Est GFR ( Amer) 44 L (> 60) Est GFR (Non-Af Amer) 36 L (> 60) BUN/Creatinine Ratio 18 (6-26) Glucose 101 H (70-99) mg/dL POC Glucose (58-89) Calculated Osmolality 299 (280-300) Lactic Acid (0.5-2.2) mmol/L Calcium 8.6 (8.6-10.8) mg/dL Total Bilirubin 0.4 (0.2-1.2) mg/dL Direct Bilirubin 0.2 (0.0-0.5) mg/dL Indirect Bilirubin 0.2 (0.0-1.2) mg/dL AST 13 (5-34) Units/L ALT 14 (0-55) Units/L Alkaline Phosphatase 94 (38-126) Units/L Ammonia 15 L (18-72) mcmol/L Troponin I (0-0.03) ng/mL Serum Total Protein 6.2 (6.0-8.3) g/dL Albumin 2.9 L (3.5-5.0) g/dL Globulin 3.3 (2.4-3.5) g/dL Albumin/Globulin Ratio 0.9 L (1.1-2.2) TSH 1.272 (0.350-4.840) mcIU/mL Urine Color (Yellow) Urine Clarity (Clear) Urine pH (5.0-8.0) pH Units Ur Specific [place] (1.010-1.025) Urine Protein (Neg-Trace) mg/dL Urine Glucose (UA) (Normal) mg/dL Urine Ketones (Negative) mg/dL Urine Blood (Negative) Urine Nitrite (Negative) Urine Bilirubin (Negative) Urine Urobilinogen (Normal) mg/dL Ur Leukocyte Esterase (Negative) Urine Microscopic RBC (0-3) per hpf Urine Microscopic WBC (0-3) per hpf Ur Squamous Epith Cells (None-Few) per lpf Urine Bacteria (None-Few) per hpf Hyaline Casts (None-Few) per lpf Ur Culture Indicated? (NO) Urine Opiates Screen (Knphxq=971) ng/mL Ur Barbiturates Screen (Zlxgaw=444) ng/mL Ur Phencyclidine Scrn (Cutoff=25) ng/mL Ur Amphetamines Screen (Qpcarb=0104) ng/mL U Benzodiazepines Scrn (Jamvek=203) ng/mL Urine Cocaine Screen (Cutoff= 300) ng/mL U Marijuana (THC) Screen (Cutoff = 50) ng/mL Ethyl Alcohol < 10 (0-10) mg/dL 11/28/16 11/28/16 11/28/16 Range/Units 12:36 12:45 13:00 WBC (4.3-11.1) K/mcL RBC (4.19-5.50) M/mcL Hgb (12.9-16.9) g/dL Hct (37.5-50.1) % MCV (83.0-100.0) fL MCH (28.0-33.3) pg MCHC (31.6-35.5) g/dL RDW (11.5-14.5) % Plt Count (140-400) K/mcL MPV (9.4-12.4) fL Immature Gran % (0-4) % Seg Neutrophils % % Lymphocytes % % Monocytes % % Eosinophils % % Basophils % % Neutrophils # (1.6-8.9) K/mcL Lymphocytes # (0.6-4.6) K/mcL Monocytes # (0.0-1.3) K/mcL Eosinophils # (0.0-0.6) K/mcL Basophils # (0.0-0.2) K/mcL PT (9.4-12.1) Seconds INR APTT (26.0-36.0) Seconds Sodium (136-145) mEq/L Potassium (3.5-4.5) mEq/L Chloride (98-109) mEq/L Carbon Dioxide (19-29) mEq/L BUN (8-26) mg/dL Creatinine (0.72-1.25) mg/dL Est GFR ( Amer) (> 60) Est GFR (Non-Af Amer) (> 60) BUN/Creatinine Ratio (6-26) Glucose (70-99) mg/dL POC Glucose 87 (58-89) Calculated Osmolality (280-300) Lactic Acid 1.5 (0.5-2.2) mmol/L Calcium (8.6-10.8) mg/dL Total Bilirubin (0.2-1.2) mg/dL Direct Bilirubin (0.0-0.5) mg/dL Indirect Bilirubin (0.0-1.2) mg/dL AST (5-34) Units/L ALT (0-55) Units/L Alkaline Phosphatase (38-126) Units/L Ammonia (18-72) mcmol/L Troponin I 0.01 (0-0.03) ng/mL Serum Total Protein (6.0-8.3) g/dL Albumin (3.5-5.0) g/dL Globulin (2.4-3.5) g/dL Albumin/Globulin Ratio (1.1-2.2) TSH (0.350-4.840) mcIU/mL Urine Color (Yellow) Urine Clarity (Clear) Urine pH (5.0-8.0) pH Units Ur Specific [place] (1.010-1.025) Urine Protein (Neg-Trace) mg/dL Urine Glucose (UA) (Normal) mg/dL Urine Ketones (Negative) mg/dL Urine Blood (Negative) Urine Nitrite (Negative) Urine Bilirubin (Negative) Urine Urobilinogen (Normal) mg/dL Ur Leukocyte Esterase (Negative) Urine Microscopic RBC (0-3) per hpf Urine Microscopic WBC (0-3) per hpf Ur Squamous Epith Cells (None-Few) per lpf Urine Bacteria (None-Few) per hpf Hyaline Casts (None-Few) per lpf Ur Culture Indicated? (NO) Urine Opiates Screen (Givctc=485) ng/mL Ur Barbiturates Screen (Irasmf=420) ng/mL Ur Phencyclidine Scrn (Cutoff=25) ng/mL Ur Amphetamines Screen (Cirhol=9191) ng/mL U Benzodiazepines Scrn (Sdgnlp=142) ng/mL Urine Cocaine Screen (Cutoff= 300) ng/mL U Marijuana (THC) Screen (Cutoff = 50) ng/mL Ethyl Alcohol (0-10) mg/dL 11/28/16 11/28/16 11/28/16 Range/Units 14:46 14:46 17:45 WBC (4.3-11.1) K/mcL RBC (4.19-5.50) M/mcL Hgb (12.9-16.9) g/dL Hct (37.5-50.1) % MCV (83.0-100.0) fL MCH (28.0-33.3) pg MCHC (31.6-35.5) g/dL RDW (11.5-14.5) % Plt Count (140-400) K/mcL MPV (9.4-12.4) fL Immature Gran % (0-4) % Seg Neutrophils % % Lymphocytes % % Monocytes % % Eosinophils % % Basophils % % Neutrophils # (1.6-8.9) K/mcL Lymphocytes # (0.6-4.6) K/mcL Monocytes # (0.0-1.3) K/mcL Eosinophils # (0.0-0.6) K/mcL Basophils # (0.0-0.2) K/mcL PT (9.4-12.1) Seconds INR APTT (26.0-36.0) Seconds Sodium (136-145) mEq/L Potassium (3.5-4.5) mEq/L Chloride (98-109) mEq/L Carbon Dioxide (19-29) mEq/L BUN (8-26) mg/dL Creatinine (0.72-1.25) mg/dL Est GFR ( Amer) (> 60) Est GFR (Non-Af Amer) (> 60) BUN/Creatinine Ratio (6-26) Glucose (70-99) mg/dL POC Glucose 89 (58-89) Calculated Osmolality (280-300) Lactic Acid (0.5-2.2) mmol/L Calcium (8.6-10.8) mg/dL Total Bilirubin (0.2-1.2) mg/dL Direct Bilirubin (0.0-0.5) mg/dL Indirect Bilirubin (0.0-1.2) mg/dL AST (5-34) Units/L ALT (0-55) Units/L Alkaline Phosphatase (38-126) Units/L Ammonia (18-72) mcmol/L Troponin I (0-0.03) ng/mL Serum Total Protein (6.0-8.3) g/dL Albumin (3.5-5.0) g/dL Globulin (2.4-3.5) g/dL Albumin/Globulin Ratio (1.1-2.2) TSH (0.350-4.840) mcIU/mL Urine Color Yellow (Yellow) Urine Clarity Clear (Clear) Urine pH 5.0 (5.0-8.0) pH Units Ur Specific [place] 1.020 (1.010-1.025) Urine Protein Negative (Neg-Trace) mg/dL Urine Glucose (UA) Normal (Normal) mg/dL Urine Ketones Negative (Negative) mg/dL Urine Blood Negative (Negative) Urine Nitrite Negative (Negative) Urine Bilirubin Negative (Negative) Urine Urobilinogen Normal (Normal) mg/dL Ur Leukocyte Esterase Trace H (Negative) Urine Microscopic RBC 0-3 (0-3) per hpf Urine Microscopic WBC 3-5 H (0-3) per hpf Ur Squamous Epith Cells Few (None-Few) per lpf Urine Bacteria Few (None-Few) per hpf Hyaline Casts Few (None-Few) per lpf Ur Culture Indicated? YES A (NO) Urine Opiates Screen Positive H (Vhkhvg=504) ng/mL Ur Barbiturates Screen Negative (Spvzcp=459) ng/mL Ur Phencyclidine Scrn Negative (Cutoff=25) ng/mL Ur Amphetamines Screen Negative (Csedav=4453) ng/mL U Benzodiazepines Scrn Negative (Wxvvhq=882) ng/mL Urine Cocaine Screen Negative (Cutoff= 300) ng/mL U Marijuana (THC) Screen Negative (Cutoff = 50) ng/mL Ethyl Alcohol (0-10) mg/dL 11/28/16 Range/Units 19:07 WBC (4.3-11.1) K/mcL RBC (4.19-5.50) M/mcL Hgb (12.9-16.9) g/dL Hct (37.5-50.1) % MCV (83.0-100.0) fL MCH (28.0-33.3) pg MCHC (31.6-35.5) g/dL RDW (11.5-14.5) % Plt Count (140-400) K/mcL MPV (9.4-12.4) fL Immature Gran % (0-4) % Seg Neutrophils % % Lymphocytes % % Monocytes % % Eosinophils % % Basophils % % Neutrophils # (1.6-8.9) K/mcL Lymphocytes # (0.6-4.6) K/mcL Monocytes # (0.0-1.3) K/mcL Eosinophils # (0.0-0.6) K/mcL Basophils # (0.0-0.2) K/mcL PT 27.5 H (9.4-12.1) Seconds INR 2.5 APTT 46.3 H (26.0-36.0) Seconds Sodium (136-145) mEq/L Potassium (3.5-4.5) mEq/L Chloride (98-109) mEq/L Carbon Dioxide (19-29) mEq/L BUN (8-26) mg/dL Creatinine (0.72-1.25) mg/dL Est GFR ( Amer) (> 60) Est GFR (Non-Af Amer) (> 60) BUN/Creatinine Ratio (6-26) Glucose (70-99) mg/dL POC Glucose (58-89) Calculated Osmolality (280-300) Lactic Acid (0.5-2.2) mmol/L Calcium (8.6-10.8) mg/dL Total Bilirubin (0.2-1.2) mg/dL Direct Bilirubin (0.0-0.5) mg/dL Indirect Bilirubin (0.0-1.2) mg/dL AST (5-34) Units/L ALT (0-55) Units/L Alkaline Phosphatase (38-126) Units/L Ammonia (18-72) mcmol/L Troponin I (0-0.03) ng/mL Serum Total Protein (6.0-8.3) g/dL Albumin (3.5-5.0) g/dL Globulin (2.4-3.5) g/dL Albumin/Globulin Ratio (1.1-2.2) TSH (0.350-4.840) mcIU/mL Urine Color (Yellow) Urine Clarity (Clear) Urine pH (5.0-8.0) pH Units Ur Specific [place] (1.010-1.025) Urine Protein (Neg-Trace) mg/dL Urine Glucose (UA) (Normal) mg/dL Urine Ketones (Negative) mg/dL Urine Blood (Negative) Urine Nitrite (Negative) Urine Bilirubin (Negative) Urine Urobilinogen (Normal) mg/dL Ur Leukocyte Esterase (Negative) Urine Microscopic RBC (0-3) per hpf Urine Microscopic WBC (0-3) per hpf Ur Squamous Epith Cells (None-Few) per lpf Urine Bacteria (None-Few) per hpf Hyaline Casts (None-Few) per lpf Ur Culture Indicated? (NO) Urine Opiates Screen (Eshjam=762) ng/mL Ur Barbiturates Screen (Kmxdqq=781) ng/mL Ur Phencyclidine Scrn (Cutoff=25) ng/mL Ur Amphetamines Screen (Iqueue=6065) ng/mL U Benzodiazepines Scrn (Hyoitx=053) ng/mL Urine Cocaine Screen (Cutoff= 300) ng/mL U Marijuana (THC) Screen (Cutoff = 50) ng/mL Ethyl Alcohol (0-10) mg/dL - Impressions ITS Impressions Brain MRI 11/28/16 18:36 IMPRESSION: No acute intracranial abnormality. D/ / 11/28/2016 19:59:32 Cornelius Chaudhari MD / earnold Interpreting Provider: Cornelius Chaudhari MD - Diagnostic Studies Chest x-ray Additional comments: Chest X-Ray 11/28/16 12:27 IMPRESSION: Cardiomegaly with left basilar atelectasis D/ / Romario Cuellar MD / Romario Cuellar MD Interpreting Provider: Romario Cuellar MD CT scan - head Additional comments: Head CT 11/28/16 12:28 IMPRESSION: No acute intracranial abnormality. Paranasal sinus disease as above. D/ / Van Yeung MD / Van Yeung MD Interpreting Provider: Van Yeung MD MRI - head Additional comments: Brain MRI 11/28/16 18:36 IMPRESSION: No acute intracranial abnormality. D/ : / 11/28/2016 19:59:32 Cornelius Chauhdari MD / elvin Interpreting Provider: Cornelius Chaudhari MD <Jamison Martins R - Last Filed: 11/29/16 03:42> Date of Encounter: 11/28/16 Internal Medicine - H&P: HPI History of present illness: Mr. Bell is a 71 year old male All Systems PM: A 10-system review of systems was performed and is negative for pertinent findings except as documented above in the HPI. - Constitutional Vitals: Temp Pulse Resp BP Pulse Ox 97.6 F 76 16 92/55 100 11/28/16 18:23 11/28/16 23:36 11/28/16 23:36 11/28/16 18:23 11/28/16 23:36 Internal Med - H&P Results - Labs CBC & Chem 7: 11/28/16 12:36 11/28/16 12:36 - Impressions ITS Impressions Brain MRI 11/28/16 18:36 IMPRESSION: No acute intracranial abnormality. D/ : / 11/28/2016 19:59:32 Cornelius Chaudhari MD / earpatrice Interpreting Provider: Cornelius Chaudhari MD - Attending Attestation I performed history and physical examination of the patient and discussed management with the EGG TRAYER / ANP. I reviewed the EGG TRAYER / ANPs note and agree with documented findings and plan of care. 71 Y/M with h/o type 2 diabetes, hypertension, afib on coumadin, COPD, CHF, history of renal cancer s/p right nephrectomy who presented to the ED today with complaints of auditory and visual hallucinations. He apparently was started on Zofran, mucinex and cetirizine on 11/24/16 and was noted to have hallucinations on the night of 11/25/16. He apparently hears and sees dogs barking, water running, and boards being smacked together, and he sees people that aren't there. His stopped the medications. His is also concerned that the patient has shaking of the hands. O/E: Obese, not in acute distress. Oriented and aware of the hallucinations. Flapping tremor of the outstretched hands. No focal weakness of extremities. EKG personally reviewed by me shows atrial fibrillation with HR 69. Head CT showed no acute intracranial abnormality. CXR showed cardiomegaly with left basilar atelectasis. Labs reviewed. Urinalysis is positive for leucocyte esterase. A/P: Auditory / Visual hallucinations: Suspect likely related to medication versus UTI Zofran was held prior to this presentation. Pt has a negative CT scan of the head and MRI. Neurology consultation for further advice. Flapping tremor: Serum ammonia level is low. Will obtain ABG to exclude CO2 retention.
[2016-11-28] MEDS: Gabapentin 400 MG CAPSULE PO SCH (22:57)
[2016-11-28] MEDS: *HR* Morphine Sulfate SR (12 HR) 15 MG TABLET.ER PO SCH (22:57)
[2016-11-28] MEDS: Aspirin Enteric Coated 81 MG Tablet PO SCH (22:57)
[2016-11-28] MEDS: Methocarbamol 500 MG TABLET PO SCH (22:57)
[2016-11-28] MEDS: Budesonide/Formoterol 160/4.5 MDI IH SCH (23:29)
[2016-11-28] MEDS: Ipratropium/Albuterol Neb 3 ML IH SCH (23:29)
[2016-11-28] MEDS: Insulin LISPRO 300 UNITS/3 ML VIAL SQ SCH (23:44)
[2016-11-29 03:58] LABS: Basophils # 0.1 K/mcL (0.0-0.2); Basophils % 0.6 %; Eosinophils # 0.5 K/mcL (0.0-0.6); Eosinophils % 3.1 %; Hemoglobin 12.5 g/dL (12.9-16.9); Immature Granulocytes % 0.7 % (0-4); Lymphocytes # 1.5 K/mcL (0.6-4.6); Mean Corpuscular HGB Conc 29.8 g/dL (31.6-35.5); Mean Corpuscular Hemoglobin 28.4 pg (28.0-33.3); Mean Corpuscular Volume 95.5 fL (83.0-100.0); Mean Platelet Volume 10.5 fL (9.4-12.4); Monocytes # 1.1 K/mcL (0.0-1.3); Monocytes % 7.4 %; Neutrophils # 11.7 K/mcL (1.6-8.9); Platelet Count 213 K/mcL (140-400); Red Cell Distribution Width 15.6 % (11.5-14.5); Segmented Neutrophils % 78.2 %
[2016-11-29 04:05] LABS: INR 2.4; Prothrombin Time 26.3 Seconds (9.4-12.1)
[2016-11-29 04:07] LABS: Activated Partial Thrombo Time 46.7 Seconds (26.0-36.0)
[2016-11-29 04:10] LABS: Calcium 8.4 mg/dL (8.6-10.8); Magnesium 1.9 mg/dL (1.6-2.6)
[2016-11-29] MEDS: Ipratropium/Albuterol Neb 3 ML IH SCH ×4 (04:53→23:16)
[2016-11-29 05:17] LABS: ABG Base Excess 2.7 mEq/L (-2.0 to 3.0); ABG HCO3 30.2 mEQ/L (21-27); ABG Oxygen Saturation 90 % (95-98); ABG PCO2 60 mmHg (35-45); ABG PH 7.31 pH Units (7.32-7.45); ABG PO2 65 mmHg (85-104)
[2016-11-29 05:18] LABS: Blood Gas FiO2 28 %; Blood Gas Liter Flow 2 L/MIN
[2016-11-29] MEDS: Gabapentin 400 MG CAPSULE PO SCH ×2 (08:26→20:46)
[2016-11-29] MEDS: *HR* Morphine Sulfate SR (12 HR) 15 MG TABLET.ER PO SCH ×2 (08:26→20:45)
[2016-11-29] MEDS: Methocarbamol 500 MG TABLET PO SCH ×2 (08:26→20:46)
[2016-11-29] MEDS: Insulin LISPRO 300 UNITS/3 ML VIAL SQ SCH ×4 (08:28→22:13)
--- NOTE | 2016-11-29 09:00 | Neurology - Consult Note ---
<James Claors - Last Filed: 11/29/16 10:05> Date of Encounter: 11/29/16 Time of Encounter: 09:00 Assessment and Plan (1) Hallucination Current Visit: Yes Status: Acute Visual/auditory hallucinations onset was 3 days ago, none since last night, CT scan of the head/brain MRI showed no acute process, patient does have a history of depression however no worsening symptoms recently, patient stopped taking new medications of Zofran, Zyrtec and Mucinex 2 days ago, one of the side effect of Zyrtec can be hallucination but it is rare, patient has a history of hypertension and takes medication for it at home however during this hospital stay, he consistently having low blood pressure, leukocytosis has been worsening , and occasional tachypnea, currently he is on Rocephin IV for possible underlying UTI, with his recent hospitalization for pancreatitis and productive cough, recommend checking septic workup, ABG showed respiratory acidosis with elevated PCO2 but no baseline PCO2 available. With history of COPD, probable obesity hypoventilation syndrome and obstructive sleep apnea on BiPAP, CO2 narcosis can cause hallucination and confusion as well, along with possible underlying infectious etiology, recommend continuation of treatment for his infection and CO2 retention. History of Present Illness Chief complaint: Visual/auditory hallucination HPI: Mr. Bell is a 71 year old male with history of type 2 diabetes, morbid obesity , chronic diastolic CHF, COPD on home oxygen, obstructive sleep apnea on home BiPAP use at night, hypertension, history of renal cancer status post right nephrectomy and atrial fibrillation on chronic anticoagulation therapy with Coumadin who presented to the ER with chief complaint of auditory/visual hallucinations. This started 3 days ago after he started taking new prescriptions of Mucinex, Zofran and cetirizine for his cough from [facility], patient stopped taking these new medications the day after but he still continued to have the hallucinations up until last night, none since then. Patient has history of depression as well but he never had hallucinations in the past, no worsening of his depression symptoms recently, patient denies focal neurological symptoms of visual changes, headache, neck pain, slurred speech, facial droop, tingling/numbness/weakness of upper/lower extremities or urinary/bowel incontinence. Patient states that he has been having productive cough for the last several days with yellowish/greenish sputum, denies abdominal pain or diarrhea today, patient has not been compliant with the BiPAP use for the last 5 days for his obstructive sleep apnea, ABG during this hospital stay showed respiratory acidosis with elevated PCO2 of 60, CT scan of the head/brain MRI showed no acute process. Past Med Surg Social Fam HX - Past Medical History Medical history: arthritis, atrial fibrillation, cancer, CHF, COPD, diabetes, hypertension, malignancy, valvular heart disease, other Psychiatric history: depression - Past Surgical History Surgical History: appendectomy, arthroscopy, cancer surgery, orthopedic, other, other - Social History Smoking Status: Former smoker Smokeless Tobacco Status: No Alcohol use: none Drug use: none - Family History Mother Brother Living Status: Still Living Hx Family Cardiac Disorders: Yes Medications and Allergies Albuterol Sulfate [Proair Hfa] 2 puff IH Q4H PRN 11/16/16 [History] Allopurinol [Zyloprim 300 MG] 300 mg PO DAILY 11/16/16 [History] Aspirin [Lo-Dose Aspirin EC] 81 mg PO HS 11/16/16 [History] Budesonide/Formoterol 160/4.5 [Symbicort 160/4.5] 2 puff IH BID 11/16/16 [ History] Duloxetine HCl [Cymbalta] 60 mg PO DAILY 11/16/16 [History] Furosemide [Lasix] 40 mg PO BID 11/16/16 [History] Gabapentin [Neurontin] 800 mg PO TID 11/16/16 [History] Lisinopril [Zestril] 20 mg PO DAILY 11/16/16 [History] Metformin [Glucophage] 500 mg PO BID 11/16/16 [History] Methocarbamol [Robaxin] 1,500 mg PO BID 11/16/16 [History] Metoprolol [Lopressor] 25 mg PO BID 11/16/16 [History] Morphine 15 mg PO BID 11/16/16 [History] Mupirocin 1 appl TP BID 11/16/16 [History] Warfarin [Coumadin] 2.5 mg PO SUMOTUWETHSA 11/16/16 [History] Warfarin [Coumadin] 5 mg PO FR 11/16/16 [History] Cetirizine HCl [Zyrtec] 10 mg PO DAILY 11/28/16 [History] Guaifenesin [Mucus Relief] 400 mg PO TID 11/28/16 [History] Ondansetron HCl [Zofran] 4 mg PO Q8H PRN 11/28/16 [History] Allergies bupropion Allergy (Verified 11/15/16 21:36) Hives All Systems: A 10-system review of systems was performed and is negative for pertinent findings except as documented above in the HPI. Review of Systems: He admits auditory/visual hallucinations but denies focal neurological symptoms of visual changes, headache, neck pain, slurred speech, facial droop, tingling/ numbness/weakness of upper/lower extremities or urinary/bowel incontinence. Patient states that he has been having productive cough for the last several days with yellowish/greenish sputum, denies abdominal pain or diarrhea today. Physical Examination - Vital Signs Vital Signs: Initial Vital Signs Temp Pulse Resp BP Pulse Ox 97.9 F 80 16 93/47 90 11/28/16 11:30 11/28/16 11:30 11/28/16 11:30 11/28/16 11:30 11/28/16 11:30 - Constitutional General appearance: uncomfortable - Neurologic Sensorimotor examination: intact Detailed motor examination: grossly full strength in all extremities, full strength in all major muscle groups Motor examination - right side: 5/5: deltoids, biceps, triceps, wrist flexion, wrist extension, hardness tester, hip flexors, quadriceps, plantarflexion Motor examination - left side: 5/5: deltoids, biceps, triceps, wrist flexion, wrist extension, hip flexors, hardness tester, quadriceps, plantarflexion Detailed sensory examination: intact Reflexes: Biceps: 2+, Triceps: 2+, Brachioradialis: 2+, Patella: 2+, Achilles: 2 + Mental Status Examination: awake, alert, oriented to person, oriented to place, oriented to time, follows commands appropriately, answers questions appropriately, no agnosia, no aphasia, no aproxia Cranial nerve examination: PERRL, EOMI, visual woodson intact, sensory to face intact, mastication intact, no facial asymmetry is present, no dysarthria, hearing is intact symmetrically, soft palate elevates bilaterally upon phonation , tongue protrudes midline Cerebellar examination: no dysmetria, no truncal ataxia, no difficulty with rapid alternating movements Results - Laboratory Findings CBC and BMP: 11/29/16 03:10 11/29/16 03:10 Abnormal lab findings: Abnormal lab results WBC 14.9 K/mcL (4.3-11.1) H 11/29/16 03:10 Hgb 12.5 g/dL (12.9-16.9) L 11/29/16 03:10 MCHC 29.8 g/dL (31.6-35.5) L 11/29/16 03:10 RDW 15.6 % (11.5-14.5) H 11/29/16 03:10 Neutrophils # 11.7 K/mcL (1.6-8.9) H 11/29/16 03:10 PT 26.3 Seconds (9.4-12.1) H 11/29/16 03:10 APTT 46.7 Seconds (26.0-36.0) H 11/29/16 03:10 ABG pH 7.31 pH Units (7.32-7.45) L 11/29/16 05:08 ABG pCO2 60 mmHg (35-45) H 11/29/16 05:08 ABG pO2 65 mmHg (85-104) L 11/29/16 05:08 ABG HCO3 30.2 mEQ/L (21-27) H 11/29/16 05:08 ABG Total CO2 32.0 mEq/L (20-26) H 11/29/16 05:08 ABG O2 Saturation 90 % (95-98) L 11/29/16 05:08 Carbon Dioxide 30 mEq/L (19-29) H 11/29/16 03:10 BUN 35 mg/dL (8-26) H 11/29/16 03:10 Creatinine 1.84 mg/dL (0.72-1.25) H 11/29/16 03:10 Est GFR ( Amer) 44 (> 60) L 11/29/16 03:10 Est GFR (Non-Af Amer) 37 (> 60) L 11/29/16 03:10 Glucose 111 mg/dL (70-99) H 11/29/16 03:10 Calculated Osmolality 303 (280-300) H 11/29/16 03:10 Calcium 8.4 mg/dL (8.6-10.8) L 11/29/16 03:10 Ammonia 15 mcmol/L (18-72) L 11/28/16 12:36 Albumin 2.9 g/dL (3.5-5.0) L 11/28/16 12:36 Albumin/Globulin Ratio 0.9 (1.1-2.2) L 11/28/16 12:36 Ur Leukocyte Esterase Trace (Negative) H 11/28/16 14:46 Urine Microscopic WBC 3-5 per hpf (0-3) H 11/28/16 14:46 Ur Culture Indicated? YES (NO) A 11/28/16 14:46 Urine Opiates Screen Positive ng/mL (Gdjdhr=318) H 11/28/16 14:46 Consult Discharge Plan - Plan [facility]: [facility]Primary Care Provider[facility] - <ZavalaNando Collazo - Last Filed: 11/29/16 16:49> Date of Encounter: 11/29/16 Time of Encounter: 16:31 Assessment and Plan (1) Altered level of consciousness Current Visit: Yes Status: Acute (2) Hallucination Current Visit: Yes Status: Acute I suspect that the mental status changes that this gentleman is experiencing are more than likely due to metabolic/infectious disturbances. He has an acute urinary tract infection, as well as a cellulitis on his left arm. He has been hypotensive. His mental status seems to be improving as during my time spent with him he was alert oriented and lucid. His states that he had had some visual hallucinations earlier. In the acute setting visual hallucinations are generally associated with underlying organic processes and not primarily psychiatric. Would simply recommend septic workup as mentioned above along with ongoing treatment of his cellulitis and urinary tract infection. MRI scan of the brain was negative for acute brain injury. His BUN/creatinine are also elevated and may be contributory. We will check a lactate and ammonia levels. History of Present Illness HPI: Mr. Bell is a 71 year old male who was seen and examined independently along with Dr. Claros regarding confusion and hallucinations. I agree with Dr. Claros's history as stated above. All Systems: A 10-system review of systems was performed and is negative for pertinent findings except as documented above in the HPI. Review of Systems: Agree as above Physical Examination - Vital Signs Vital Signs: Initial Vital Signs Temp Pulse Resp BP Pulse Ox 97.9 F 80 16 93/47 90 11/28/16 11:30 11/28/16 11:30 11/28/16 11:30 11/28/16 11:30 11/28/16 11:30 - Neurologic Motor examination - right side: 3/5: quadriceps, 4/5: tibialis Anterior, toe extension (EHL), plantarflexion Motor examination - left side: 3/5: quadriceps, 4/5: hip flexors, tibialis Anterior, toe extension (EHL), plantarflexion Results - Laboratory Findings CBC and BMP: 11/29/16 03:10 11/29/16 03:10 Abnormal lab findings: Abnormal lab results WBC 14.9 K/mcL (4.3-11.1) H 11/29/16 03:10 Hgb 12.5 g/dL (12.9-16.9) L 11/29/16 03:10 MCHC 29.8 g/dL (31.6-35.5) L 11/29/16 03:10 RDW 15.6 % (11.5-14.5) H 11/29/16 03:10 Neutrophils # 11.7 K/mcL (1.6-8.9) H 11/29/16 03:10 PT 26.3 Seconds (9.4-12.1) H 11/29/16 03:10 APTT 46.7 Seconds (26.0-36.0) H 11/29/16 03:10 ABG pH 7.31 pH Units (7.32-7.45) L 11/29/16 05:08 ABG pCO2 60 mmHg (35-45) H 11/29/16 05:08 ABG pO2 65 mmHg (85-104) L 11/29/16 05:08 ABG HCO3 30.2 mEQ/L (21-27) H 11/29/16 05:08 ABG Total CO2 32.0 mEq/L (20-26) H 11/29/16 05:08 ABG O2 Saturation 90 % (95-98) L 11/29/16 05:08 Carbon Dioxide 30 mEq/L (19-29) H 11/29/16 03:10 BUN 35 mg/dL (8-26) H 11/29/16 03:10 Creatinine 1.84 mg/dL (0.72-1.25) H 11/29/16 03:10 Est GFR ( Amer) 44 (> 60) L 11/29/16 03:10 Est GFR (Non-Af Amer) 37 (> 60) L 11/29/16 03:10 Glucose 111 mg/dL (70-99) H 11/29/16 03:10 POC Glucose 106 (58-89) H 11/29/16 11:18 Calculated Osmolality 303 (280-300) H 11/29/16 03:10 Calcium 8.4 mg/dL (8.6-10.8) L 11/29/16 03:10 Ammonia 15 mcmol/L (18-72) L 11/28/16 12:36 Albumin 2.9 g/dL (3.5-5.0) L 11/28/16 12:36 Albumin/Globulin Ratio 0.9 (1.1-2.2) L 11/28/16 12:36 Ur Leukocyte Esterase Trace (Negative) H 11/28/16 14:46 Urine Microscopic WBC 3-5 per hpf (0-3) H 11/28/16 14:46 Ur Culture Indicated? YES (NO) A 11/28/16 14:46 Urine Opiates Screen Positive ng/mL (Ohkwys=785) H 11/28/16 14:46
[2016-11-29] MEDS: Budesonide/Formoterol 160/4.5 MDI IH SCH ×2 (10:57→23:16)
[2016-11-29] MEDS ORDERED: 0.9 % Sodium Chloride 250 ML IVC PRN (12:21)
--- NOTE | 2016-11-29 12:37 | Internal Med Progress Note ---
Date of Encounter: 11/29/16 Time of Encounter: 12:33 - Assessment and plan (1) Altered level of consciousness Current Visit: Yes Status: Acute Assessment and plan: Likely secondary to UTI will continue IV abx and continue to closely monitor (2) UTI (urinary tract infection) Current Visit: Yes Status: Acute Assessment and plan: prelim urine culture positive for gram negative cocci will increase coverage to Zosyn given persistent leukocytosis and worsening erythema of lower extremity concerning for early cellulitis follow up official urine cultures Qualifiers: Urinary tract infection type: acute cystitis Hematuria presence: without hematuria Qualified Code(s): N30.00 - Acute cystitis without hematuria (3) Type 2 diabetes mellitus Current Visit: No Status: Chronic Assessment and plan: FS within acceptable range continue SS insulin algorithm monitor FS and BG Qualifiers: Diabetes mellitus complication status: with unspecified complications Diabetes mellitus tank terminal gauger insulin use: without tank terminal gauger use Qualified Code( s): E11.8 - Type 2 diabetes mellitus with unspecified complications (4) ANTONIO (obstructive sleep apnea) Current Visit: No Status: Chronic Assessment and plan: continue CPAP at bedtime (5) Paroxysmal a-fib Current Visit: No Status: Chronic Assessment and plan: Holding BB due to hypotension Anticoagulated with Coumadin INR within therapeutic range pharmacy to dose coumadin Rate currently controlled, will closely monitor (6) Chronic anticoagulation Current Visit: No Status: Chronic (7) Morbid obesity with BMI of 50.0-59.9, adult Current Visit: No Status: Chronic (8) Cellulitis Current Visit: Yes Status: Acute Assessment and plan: Early signs of cellulitis noted to LLE will broaden IV abx coverage and closely monitor patient reports of having history of chronic venous stasis Qualifiers: Site of cellulitis: extremity Site of cellulitis of extremity: lower extremity Laterality: left Qualified Code(s): L03.116 - Cellulitis of left lower limb (9) Constipation Current Visit: Yes Status: Acute Assessment and plan: will start Senna Plus PO BID and miralax prn Qualifiers: Constipation type: drug induced constipation Qualified Code(s): K59.03 - Drug induced constipation - Subjective Interval history: Patient seen and examined with family present at bedside. He is AAO x 3 at this time, however as per family he is still confused and is making strange comments but overall is improved from previous day. Reports of not being able to move his bowels for the last few days. reports of chronically being on pain medications at home. - Constitutional Vitals: Temp Pulse Resp BP Pulse Ox 97.8 F 79 18 89/51 93 11/29/16 11:25 11/29/16 11:25 11/29/16 11:25 11/29/16 11:25 11/29/16 11:25 General appearance: Present: A&O X 3, morbidly obese, pleasant, no acute distress - Head Head exam: Present: atraumatic, normocephalic - Eye Eye exam: Present: normal appearance, conjuntiva pink, sclera anicteric - Respiratory Respiratory exam: Present: decreased breath sounds. Absent: respiratory distress, wheezes - GI/Abdominal GI/Abdominal exam: Present: normal bowel sounds, soft, no peritoneal signs. Absent: distended, tenderness - Extremities Exam Extremities exam: Present: pedal edema, warm, radial pulses palpable and symetrical Additional comments: bilateral LE edema, erythema on distal LE-warm - Neurological Exam Neurological exam: Present: alert, oriented X3 - Psychiatric Psychiatric exam: Present: normal affect, normal mood Internal Medicine: Result - Labs CBC & Chem 7: 11/29/16 03:10 11/29/16 03:10 Labs: Short CBC 11/29/16 Range/Units 03:10 WBC 14.9 H (4.3-11.1) K/mcL Hgb 12.5 L (12.9-16.9) g/dL Hct 42.0 (37.5-50.1) % Plt Count 213 (140-400) K/mcL Neutrophils # 11.7 H (1.6-8.9) K/mcL BMP 11/29/16 03:10 Sodium 142 Potassium 4.0 Chloride 102 Carbon Dioxide 30 H BUN 35 H Creatinine 1.84 H Glucose 111 H Calcium 8.4 L - ABG Interpretation ABG results: ABG ABG pH 7.31 pH Units (7.32-7.45) L 11/29/16 05:08 ABG pCO2 60 mmHg (35-45) H 11/29/16 05:08 ABG pO2 65 mmHg (85-104) L 11/29/16 05:08 ABG O2 Saturation 90 % (95-98) L 11/29/16 05:08 PT/INR, D-dimer PT 26.3 Seconds (9.4-12.1) H 11/29/16 03:10 - Impressions Impressions Brain MRI 11/28/16 18:36 IMPRESSION: No acute intracranial abnormality. D/ : / 11/28/2016 19:59:32 Cornelius Chaudhari MD / earnold Interpreting Provider: Cornelius Chaudhari MD Consult Discharge Plan - Plan [facility]errals: [facility] [Primary Care Provider] -
--- NOTE | 2016-11-29 14:31 | Electrocardiograph Report ---
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
[2016-11-29] MEDS: Piperacillin/Tazobactam 3.375 GM in D5% in Water (Mini-Bag+) 100 ML IVPB SCH (15:21)
[2016-11-29] MEDS: Sennosides/Docusate Sodium TABLET PO SCH ×2 (17:09→22:08)
[2016-11-29] MEDS ORDERED: Warfarin perPT PO PRN (18:00)
[2016-11-29] MEDS ORDERED: *HR* Warfarin 2.5 MG TABLET PO SCH (18:00)
[2016-11-29] MEDS: Gabapentin 300 MG CAPSULE PO SCH (20:45)
[2016-11-29] MEDS: Aspirin Enteric Coated 81 MG Tablet PO SCH (20:46)
[2016-11-30] MEDS: Piperacillin/Tazobactam 3.375 GM in D5% in Water (Mini-Bag+) 100 ML IVPB SCH ×3 (00:13→16:00)
[2016-11-30 05:33] LABS: Basophils % 0.5 %; Eosinophils # 0.3 K/mcL (0.0-0.6); Hemoglobin 11.5 g/dL (12.9-16.9); Immature Granulocytes % 0.7 % (0-4); Lymphocytes # 0.9 K/mcL (0.6-4.6); Mean Corpuscular HGB Conc 29.5 g/dL (31.6-35.5); Mean Corpuscular Hemoglobin 27.7 pg (28.0-33.3); Mean Platelet Volume 10.3 fL (9.4-12.4); Monocytes # 0.6 K/mcL (0.0-1.3); Monocytes % 7.4 %; Neutrophils # 6.2 K/mcL (1.6-8.9); Platelet Count 181 K/mcL (140-400); Red Blood Count 4.15 M/mcL (4.19-5.50); Red Cell Distribution Width 15.6 % (11.5-14.5); Segmented Neutrophils % 76.4 %
[2016-11-30] MEDS: Ipratropium/Albuterol Neb 3 ML IH SCH ×4 (05:39→23:15)
[2016-11-30 05:45] LABS: Calcium 8.4 mg/dL (8.6-10.8); Magnesium 2.1 mg/dL (1.6-2.6); Phosphorous 3.4 mg/dL (2.3-4.7); Potassium 4.7 mEq/L (3.5-4.5)
[2016-11-30 08:19] LABS: INR 3.4; Prothrombin Time 38.1 Seconds (9.4-12.1)
[2016-11-30] MEDS: *HR* Morphine Sulfate SR (12 HR) 15 MG TABLET.ER PO SCH ×2 (08:33→21:51)
[2016-11-30] MEDS: Insulin LISPRO 300 UNITS/3 ML VIAL SQ SCH ×4 (08:33→22:08)
[2016-11-30] MEDS: Gabapentin 400 MG CAPSULE PO SCH ×2 (08:33→21:51)
[2016-11-30] MEDS: Sennosides/Docusate Sodium TABLET PO SCH ×2 (08:34→21:51)
[2016-11-30] MEDS: Methocarbamol 500 MG TABLET PO SCH ×2 (08:34→21:51)
[2016-11-30] MEDS: Gabapentin 300 MG CAPSULE PO SCH ×2 (08:34→21:51)
[2016-11-30] MEDS ORDERED: Ondansetron 4 MG/2 ML VIAL IVP PRN (09:20)
[2016-11-30] MEDS ORDERED: Ondansetron 4 MG/2 ML VIAL ONE (09:27)
[2016-11-30] MEDS: Budesonide/Formoterol 160/4.5 MDI IH SCH ×2 (10:48→23:15)
--- NOTE | 2016-11-30 13:38 | Internal Med Progress Note ---
Date of Encounter: 11/30/16 Time of Encounter: 10:30 - Assessment and plan (1) Altered level of consciousness Current Visit: Yes Status: Acute Assessment and plan: Likely secondary to UTI will continue IV abx and continue to closely monitor Mental status back to baseline (2) UTI (urinary tract infection) Current Visit: Yes Status: Acute Assessment and plan: Urine culture: E.coli Will continue Zosyn at this time given improvement in his distal LLE cellulitis Qualifiers: Urinary tract infection type: acute cystitis Hematuria presence: without hematuria Qualified Code(s): N30.00 - Acute cystitis without hematuria (3) Type 2 diabetes mellitus Current Visit: No Status: Chronic Assessment and plan: FS within acceptable range continue SS insulin algorithm monitor FS and BG Qualifiers: Diabetes mellitus complication status: with unspecified complications Diabetes mellitus long term care administrator insulin use: without long term care administrator use Qualified Code( s): E11.8 - Type 2 diabetes mellitus with unspecified complications (4) ANTONIO (obstructive sleep apnea) Current Visit: No Status: Chronic Assessment and plan: continue CPAP at bedtime (5) Paroxysmal a-fib Current Visit: No Status: Chronic Assessment and plan: Held BB due to hypotension upon admission Currently rate and BP within acceptable range despite holding BB Will continue to hold BB given current BP and HR readings INR in supratherapeutic range, will hold today's dose of Coumadin Will continue to monitor INR daily, goal INR: 2-3 pharmacy to dose coumadin (6) Chronic anticoagulation Current Visit: No Status: Chronic (7) Morbid obesity with BMI of 50.0-59.9, adult Current Visit: No Status: Chronic (8) Cellulitis Current Visit: Yes Status: Acute Assessment and plan: Clinically improving will continue IV abx Qualifiers: Site of cellulitis: extremity Site of cellulitis of extremity: lower extremity Laterality: left Qualified Code(s): L03.116 - Cellulitis of left lower limb (9) Constipation Current Visit: Yes Status: Acute Assessment and plan: Continue Senna Plus PO BID and miralax prn Patient reported of not taking Miralax yesterday, will give a dose today Qualifiers: Constipation type: drug induced constipation Qualified Code(s): K59.03 - Drug induced constipation (10) Epigastric discomfort Current Visit: Yes Status: Acute Assessment and plan: Will do a trial of PPI, started Omeprazole if remains symptomatic, will consider GI evaluation (11) DVT prophylaxis Current Visit: Yes Status: Acute Assessment and plan: anticoagulated with Coumadin - Subjective Interval history: Patient seen and examined with family present at bedside. Mental status back to baseline. Reports of severe epigastric discomfort which is worsened with meals. States this is a new occurence and also reports of not being able to have a bowel movement for the last few days, however reports of passing flatus. As per nursing reports, he was able to tolerate his dinner and breakfast without much discomfort. - Constitutional Vitals: Temp Pulse Resp BP Pulse Ox 97.6 F 87 18 116/64 99 11/30/16 11:55 11/30/16 11:55 11/30/16 11:55 11/30/16 11:55 11/30/16 11:55 General appearance: Present: A&O X 3, morbidly obese, pleasant, no acute distress - Head Head exam: Present: atraumatic, normocephalic - Eye Eye exam: Present: normal appearance, conjuntiva pink, sclera anicteric - Respiratory Respiratory exam: Present: CTAB. Absent: accessory muscle use, rales, rhonchi, wheezes - Cardiovascular Cardiovascular exam: Present: RRR, +S1, +S2. Absent: diastolic murmur, gallop, rubs, systolic murmur - GI/Abdominal GI/Abdominal exam: Present: distended (obese), normal bowel sounds, soft, no peritoneal signs. Absent: tenderness - Extremities Exam Additional comments: bilateral lower extremity edema. Distal LLE erythema improving - Neurological Exam Neurological exam: Present: alert, oriented X3 - Psychiatric Psychiatric exam: Present: normal affect, normal mood Internal Medicine: Result - Labs CBC & Chem 7: 11/30/16 05:11 11/30/16 05:11 Labs: Short CBC 11/30/16 Range/Units 05:11 WBC 8.1 (4.3-11.1) K/mcL Hgb 11.5 L (12.9-16.9) g/dL Hct 39.0 (37.5-50.1) % Plt Count 181 (140-400) K/mcL Neutrophils # 6.2 (1.6-8.9) K/mcL BMP 11/30/16 05:11 Sodium 138 Potassium 4.7 H Chloride 105 Carbon Dioxide 27 BUN 27 H Creatinine 1.43 H Glucose 125 H Calcium 8.4 L - ABG Interpretation ABG results: ABG ABG pH 7.31 pH Units (7.32-7.45) L 11/29/16 05:08 ABG pCO2 60 mmHg (35-45) H 11/29/16 05:08 ABG pO2 65 mmHg (85-104) L 11/29/16 05:08 ABG O2 Saturation 90 % (95-98) L 11/29/16 05:08 PT/INR, D-dimer PT 38.1 Seconds (9.4-12.1) H 11/30/16 08:01 Consult Discharge Plan - Plan [facility]errals: [facility] [Primary Care Provider] -
--- NOTE | 2016-11-30 18:54 | Venous Imaging Report ---
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 Normal contralateral subclavian vein. Findings Prior Study: No prior study available for comparison. Upper Extremity Venous Duplex Side Vein Compress Spontaneous Flow Augment Left Jugular Normal Yes Phasic Yes Left Subclavian Normal Yes Phasic Yes Left Axillary Normal Yes Phasic Yes Left Brachial Normal Yes Phasic Yes Left Cephalic Normal Yes Phasic Yes Left Cephalic Upper Arm Normal Yes Phasic Yes Left Cephalic Forearm Normal Yes Phasic Yes Left Basilic Normal Yes Phasic Yes Left Basilic Upper Arm Normal Yes Phasic Yes Left Basilic Forearm Normal Yes Phasic Yes Left Radial Normal Yes Phasic Yes Left Ulnar Normal Yes Phasic Yes Right Subclavian Normal Yes Phasic Yes Updated by James Jewell MD on 11/30/2016 6:47:57 PM electronically signed on 11/30/2016 6:48:07 PM with status of Final
[2016-11-30] MEDS: Aspirin Enteric Coated 81 MG Tablet PO SCH (21:51)
[2016-12-01] MEDS: Piperacillin/Tazobactam 3.375 GM in D5% in Water (Mini-Bag+) 100 ML IVPB SCH ×2 (00:05→08:45)
[2016-12-01] MEDS: Ipratropium/Albuterol Neb 3 ML IH SCH ×4 (03:56→23:34)
[2016-12-01 05:50] LABS: INR 3.3; Prothrombin Time 36.6 Seconds (9.4-12.1)
[2016-12-01 05:51] LABS: BUN/Creatinine Ratio 16 (6-26); Blood Urea Nitrogen 19 mg/dL (8-26); Calcium 8.4 mg/dL (8.6-10.8); Carbon Dioxide 29 mEq/L (19-29); Chloride 107 mEq/L (98-109); Glucose 135 mg/dL (70-99); Magnesium 1.9 mg/dL (1.6-2.6); Osmolality,Calculated 294 (280-300); Phosphorous 3.1 mg/dL (2.3-4.7); Potassium 4.7 mEq/L (3.5-4.5); Sodium 140 mEq/L (136-145); eGFR For African Americans > 60 (> 60); eGFR For Non-African Americans 60 (> 60)
[2016-12-01 06:01] LABS: Basophils # 0.1 K/mcL (0.0-0.2); Basophils % 0.6 %; Eosinophils # 0.3 K/mcL (0.0-0.6); Eosinophils % 3.9 %; Hematocrit 35.4 % (37.5-50.1); Hemoglobin 10.8 g/dL (12.9-16.9); Immature Granulocytes % 0.6 % (0-4); Lymphocytes # 0.8 K/mcL (0.6-4.6); Mean Corpuscular HGB Conc 30.5 g/dL (31.6-35.5); Mean Corpuscular Hemoglobin 28.6 pg (28.0-33.3); Mean Corpuscular Volume 93.7 fL (83.0-100.0); Mean Platelet Volume 10.5 fL (9.4-12.4); Monocytes # 0.6 K/mcL (0.0-1.3); Monocytes % 6.9 %; Neutrophils # 6.4 K/mcL (1.6-8.9); Platelet Count 195 K/mcL (140-400); Red Blood Count 3.78 M/mcL (4.19-5.50); Red Cell Distribution Width 15.6 % (11.5-14.5)
[2016-12-01] MEDS: Insulin LISPRO 300 UNITS/3 ML VIAL SQ SCH ×4 (08:41→22:31)
[2016-12-01] MEDS: Methocarbamol 500 MG TABLET PO SCH ×2 (08:44→22:32)
[2016-12-01] MEDS: Gabapentin 300 MG CAPSULE PO SCH (08:45)
[2016-12-01] MEDS: Gabapentin 400 MG CAPSULE PO SCH ×2 (08:45→22:33)
[2016-12-01] MEDS: Sennosides/Docusate Sodium TABLET PO SCH ×2 (08:45→22:33)
[2016-12-01] MEDS: *HR* Morphine Sulfate SR (12 HR) 15 MG TABLET.ER PO SCH ×2 (08:45→22:32)
[2016-12-01] MEDS: Budesonide/Formoterol 160/4.5 MDI IH SCH ×2 (11:06→23:34)
--- NOTE | 2016-12-01 13:44 | Internal Med Progress Note ---
Date of Encounter: 12/01/16 Time of Encounter: 13:42 - Assessment and plan (1) Altered level of consciousness Current Visit: Yes Status: Acute Assessment and plan: Likely secondary to UTI Mental status back to baseline Switched to PO abx today Discharge planning, PT eval likely d/c in am BP Within acceptable range tolerating BB continue to hold Lisinopril Restarted low dose Lasix (2) UTI (urinary tract infection) Current Visit: Yes Status: Acute Assessment and plan: Urine culture: E.coli Switched to Augmentin to cover for UTI and LLE cellulitis will treat for a total of 7days (Day 4) Qualifiers: Urinary tract infection type: acute cystitis Hematuria presence: without hematuria Qualified Code(s): N30.00 - Acute cystitis without hematuria (3) Type 2 diabetes mellitus Current Visit: No Status: Chronic Assessment and plan: FS within acceptable range continue SS insulin algorithm monitor FS and BG Qualifiers: Diabetes mellitus complication status: with unspecified complications Diabetes mellitus fdc insulin use: without fdc use Qualified Code( s): E11.8 - Type 2 diabetes mellitus with unspecified complications (4) ANTONIO (obstructive sleep apnea) Current Visit: No Status: Chronic Assessment and plan: continue CPAP at bedtime (5) Paroxysmal a-fib Current Visit: No Status: Chronic Assessment and plan: Currently rate and BP within acceptable range INR in supratherapeutic range, will hold today's dose of Coumadin Will continue to monitor INR daily, goal INR: 2-3 pharmacy to dose coumadin (6) Chronic anticoagulation Current Visit: No Status: Chronic (7) Morbid obesity with BMI of 50.0-59.9, adult Current Visit: No Status: Chronic (8) Cellulitis Current Visit: Yes Status: Acute Assessment and plan: Clinically improving will switch to Augmentin today Qualifiers: Site of cellulitis: extremity Site of cellulitis of extremity: lower extremity Laterality: left Qualified Code(s): L03.116 - Cellulitis of left lower limb (9) Constipation Current Visit: Yes Status: Acute Assessment and plan: Continue Senna Plus PO BID and miralax Enema administration Qualifiers: Constipation type: drug induced constipation Qualified Code(s): K59.03 - Drug induced constipation (10) Epigastric discomfort Current Visit: Yes Status: Acute Assessment and plan: Resolved continue Omeprazole PO (11) DVT prophylaxis Current Visit: Yes Status: Acute Assessment and plan: anticoagulated with Coumadin - Subjective Interval history: Patient seen and examined with family present at bedside. Reports of feeling significantly better but still has not been able to move his bowels. Reports of passing gas. No overnight events were reported. - Constitutional Vitals: Temp Pulse Resp BP Pulse Ox 97.7 F 89 18 99/62 97 12/01/16 11:48 12/01/16 11:48 12/01/16 11:48 12/01/16 11:48 12/01/16 11:48 General appearance: Present: A&O X 3, morbidly obese, pleasant, no acute distress - Head Head exam: Present: atraumatic, normocephalic - Eye Eye exam: Present: normal appearance, conjuntiva pink, sclera anicteric - Respiratory Respiratory exam: Present: CTAB. Absent: accessory muscle use, rales, rhonchi, wheezes - Cardiovascular Cardiovascular exam: Present: RRR, +S1, +S2. Absent: diastolic murmur, gallop, rubs, systolic murmur - GI/Abdominal GI/Abdominal exam: Present: distended (obese), normal bowel sounds, soft, no peritoneal signs. Absent: tenderness - Extremities Exam Extremities exam: Present: warm, radial pulses palpable and symetrical ( bilateral LE edema ) - Neurological Exam Neurological exam: Present: alert, oriented X3 - Psychiatric Psychiatric exam: Present: normal affect, normal mood Internal Medicine: Result - Labs CBC & Chem 7: 12/01/16 05:23 12/01/16 05:23 Labs: Short CBC 12/01/16 Range/Units 05:23 WBC 8.2 (4.3-11.1) K/mcL Hgb 10.8 L (12.9-16.9) g/dL Hct 35.4 L (37.5-50.1) % Plt Count 195 (140-400) K/mcL Neutrophils # 6.4 (1.6-8.9) K/mcL BMP 12/01/16 05:23 Sodium 140 Potassium 4.7 H Chloride 107 Carbon Dioxide 29 BUN 19 Creatinine 1.20 Glucose 135 H Calcium 8.4 L - ABG Interpretation ABG results: ABG ABG pH 7.31 pH Units (7.32-7.45) L 11/29/16 05:08 ABG pCO2 60 mmHg (35-45) H 11/29/16 05:08 ABG pO2 65 mmHg (85-104) L 11/29/16 05:08 ABG O2 Saturation 90 % (95-98) L 11/29/16 05:08 PT/INR, D-dimer PT 36.6 Seconds (9.4-12.1) H 12/01/16 05:23 Consult Discharge Plan - Plan [facility]: [facility] [Primary Care Provider[facility] -
[2016-12-01] MEDS: Furosemide 20 MG TABLET PO SCH (16:16)
[2016-12-01] MEDS: Aspirin Enteric Coated 81 MG Tablet PO SCH (22:33)
[2016-12-02] MEDS: Ipratropium/Albuterol Neb 3 ML IH SCH ×2 (04:01→10:33)
[2016-12-02 06:05] LABS: Basophils # 0.1 K/mcL (0.0-0.2); Basophils % 0.8 %; Eosinophils # 0.3 K/mcL (0.0-0.6); Eosinophils % 3.9 %; Hematocrit 37.6 % (37.5-50.1); Hemoglobin 11.2 g/dL (12.9-16.9); Immature Granulocytes % 0.9 % (0-4); Immature Platelets 5.1 % (1.1-6.1); Lymphocytes % 12.7 %; Mean Corpuscular HGB Conc 29.8 g/dL (31.6-35.5); Mean Corpuscular Hemoglobin 27.8 pg (28.0-33.3); Mean Corpuscular Volume 93.3 fL (83.0-100.0); Mean Platelet Volume 10.3 fL (9.4-12.4); Monocytes # 0.6 K/mcL (0.0-1.3); Monocytes % 8.1 %; Neutrophils # 5.6 K/mcL (1.6-8.9); Platelet Count 212 K/mcL (140-400); Red Blood Count 4.03 M/mcL (4.19-5.50); Red Cell Distribution Width 15.6 % (11.5-14.5); Segmented Neutrophils % 73.6 %
[2016-12-02 06:20] LABS: INR 2.2; Prothrombin Time 24.1 Seconds (9.4-12.1)
[2016-12-02 06:38] LABS: BUN/Creatinine Ratio 14 (6-26); Blood Urea Nitrogen 17 mg/dL (8-26); Calcium 8.5 mg/dL (8.6-10.8); Carbon Dioxide 31 mEq/L (19-29); Chloride 106 mEq/L (98-109); Glucose 112 mg/dL (70-99); Magnesium 2.2 mg/dL (1.6-2.6); Osmolality,Calculated 298 (280-300); Phosphorous 2.7 mg/dL (2.3-4.7); Potassium 4.8 mEq/L (3.5-4.5); Sodium 143 mEq/L (136-145); eGFR For African Americans > 60 (> 60); eGFR For Non-African Americans 58 (> 60)
[2016-12-02 09:08] VITALS: BP 120/63
[2016-12-02] MEDS: Insulin LISPRO 300 UNITS/3 ML VIAL SQ SCH ×2 (09:40→12:09)
[2016-12-02] MEDS: *HR* Morphine Sulfate SR (12 HR) 15 MG TABLET.ER PO SCH (09:40)
[2016-12-02] MEDS: Methocarbamol 500 MG TABLET PO SCH (09:40)
[2016-12-02] MEDS: Furosemide 20 MG TABLET PO SCH (09:41)
[2016-12-02] MEDS: Gabapentin 400 MG CAPSULE PO SCH (09:41)
[2016-12-02] MEDS: Sennosides/Docusate Sodium TABLET PO SCH (09:42)
[2016-12-02] MEDS: Budesonide/Formoterol 160/4.5 MDI IH SCH (10:33)
--- NOTE | 2016-12-02 11:01 | Discharge Summary ---
Date of Encounter: 12/02/16 Time of Encounter: 10:58 - Discharge Diagnosis (1) Altered level of consciousness Priority: Primary Status: Resolved (2) UTI (urinary tract infection) Priority: Primary Status: Acute Qualifiers: Urinary tract infection type: acute cystitis Hematuria presence: without hematuria Qualified Code(s): N30.00 - Acute cystitis without hematuria (3) Type 2 diabetes mellitus Priority: Secondary Status: Chronic Qualifiers: Diabetes mellitus complication status: with unspecified complications Diabetes mellitus intermediate frame tender insulin use: without intermediate frame tender use Qualified Code( s): E11.8 - Type 2 diabetes mellitus with unspecified complications (4) ANTONIO (obstructive sleep apnea) Priority: Secondary Status: Chronic (5) Paroxysmal a-fib Priority: Secondary Status: Chronic (6) Chronic anticoagulation Priority: Secondary Status: Chronic (7) Morbid obesity with BMI of 50.0-59.9, adult Priority: Secondary Status: Chronic (8) Cellulitis Priority: Secondary Status: Acute Qualifiers: Site of cellulitis: extremity Site of cellulitis of extremity: lower extremity Laterality: left Qualified Code(s): L03.116 - Cellulitis of left lower limb (9) Constipation Priority: Secondary Status: Resolved Qualifiers: Constipation type: drug induced constipation Qualified Code(s): K59.03 - Drug induced constipation (10) Epigastric discomfort Priority: Secondary Status: Acute (11) DVT prophylaxis Priority: Secondary Status: Acute - Discharge Medications Prescriptions: Amoxicillin/Clavulanate [Augmentin] 875 mg PO BIDWM #5 tablet Omeprazole [PriLOSEC] 40 mg PO DAILY@0730 #30 capsule.dr Treadwell/Docusate Sodium [Senna Plus] 2 each PO BID PRN #30 tablet PRN Reason: Constipation Home Medications: Albuterol Sulfate [Proair Hfa] 2 puff IH Q4H PRN 11/16/16 [History] Allopurinol [Zyloprim 300 MG] 300 mg PO DAILY 11/16/16 [History] Aspirin [Lo-Dose Aspirin EC] 81 mg PO HS 11/16/16 [History] Budesonide/Formoterol 160/4.5 [Symbicort 160/4.5] 2 puff IH BID 11/16/16 [ History] Duloxetine HCl [Cymbalta] 60 mg PO DAILY 11/16/16 [History] Furosemide [Lasix] 40 mg PO BID 11/16/16 [History] Gabapentin [Neurontin] 800 mg PO TID 11/16/16 [History] Lisinopril [Zestril] 20 mg PO DAILY 11/16/16 [History] Metformin [Glucophage] 500 mg PO BID 11/16/16 [History] Methocarbamol [Robaxin] 1,500 mg PO BID 11/16/16 [History] Metoprolol [Lopressor] 25 mg PO BID 11/16/16 [History] Morphine 15 mg PO BID 11/16/16 [History] Mupirocin 1 appl TP BID 11/16/16 [History] Warfarin [Coumadin] 2.5 mg PO SUMOTUWETHSA 11/16/16 [History] Warfarin [Coumadin] 5 mg PO FR 11/16/16 [History] Cetirizine HCl [Zyrtec] 10 mg PO DAILY 11/28/16 [History] Guaifenesin [Mucus Relief] 400 mg PO TID 11/28/16 [History] Ondansetron HCl [Zofran] 4 mg PO Q8H PRN 11/28/16 [History] Amoxicillin/Clavulanate [Augmentin] 875 mg PO BIDWM #5 tablet 12/02/16 [Rx] Omeprazole [PriLOSEC] 40 mg PO DAILY@0730 #30 capsule. 12/02/16 [Rx] Sennosides/Docusate Sodium [Senna Plus] 2 each PO BID PRN #30 tablet 12/02/16 [ Rx] Allergies/Adverse Reactions: Allergies bupropion Allergy (Verified 11/15/16 21:36) Hives Date of admission: 11/30/16 16:39 [facility] Consults: 12/01/16 09:52 Consult to Physical Therapy [CONS] Routine Comment: Evaluate, develop and implement POC Discharging clinician: Isabela Rodríguez Anticipated date of discharge: 12/02/16 - Patient Status Disposition: Home, Self-Care Condition: Good Functional capacity at discharge: uses cane/walker Overall status at discharge: patient is back to baseline - Discharge Instructions Instructions: Warfarin (By mouth), Elevated INR (DC) Follow Up With: [facility] [Primary Care Provider] - Additional Instructions: Please follow up with your primary care physician within one week after your discharge from the hospital. Omeprazole has been added to your home medication list, please take this medication as prescribed and inform your primary care physician about this change. Please continue Augmentin for two more days. Please resume all your other home medications as prescribed by your primary care physician. - Diet and Activity Activity: resume usual activities as tolerated Diet: low salt diet Hospital course: Mr. Bell is a 71 year old male with past medical history of type 2 diabetes, hypertension, atrial fibrillation on Coumadin, COPD, CHF, morbid obesity who was admitted for change in mental status secondary to urinary tract infection and lower extremity cellulitis, acute kidney injury. Patient was started on IV antibiotics and gentle IV fluids. Patient responded appropriately to therapy and antibiotics were De-escalated as per cultures and clinical response. Patient also reported of having epigastric discomfort for which he was started on omeprazole. Patient responded appropriately to therapy. Patient's SAMUEL resolved and his home medications were resumed. At this time patient is hemodynamically stable and will be discharged to home with follow-up with his primary care physician. Patient is to continue 2 more days of oral antibiotics after discharge. Patient demonstrates understanding of his diagnosis and agrees with the discharge care and plan. - Time Spent with Patient Total time spent providing and/or coordinating discharge services: Greater than 30 minutes - Constitutional Vitals: Temp Pulse Resp BP Pulse Ox 98.1 F 89 16 120/63 95 12/02/16 09:00 12/02/16 09:00 12/02/16 10:35 12/02/16 09:00 12/02/16 10:35 General appearance: Present: A&O X 3, morbidly obese, pleasant, no acute distress - Head Head exam: Present: atraumatic, normocephalic - Eye Eye exam: Present: normal appearance, conjuntiva pink, sclera anicteric - Respiratory Respiratory exam: Present: CTAB. Absent: accessory muscle use, rales, rhonchi, wheezes - Cardiovascular Cardiovascular exam: Present: RRR, +S1, +S2. Absent: diastolic murmur, gallop, rubs, systolic murmur - GI/Abdominal GI/Abdominal exam: Present: distended (obese), normal bowel sounds, soft, no peritoneal signs. Absent: tenderness - Extremities Exam Extremities exam: Present: pedal edema, warm, radial pulses palpable and symetrical. Absent: calf tenderness - Neurological Exam Neurological exam: Present: alert, oriented X3 - Psychiatric Psychiatric exam: Present: normal affect, normal mood
[2016-12-02] MEDS ORDERED: *HR* Warfarin 5 MG TABLET PO SCH (18:00)
== END 2016-12-02 12:53 | disposition home or self-care (01) | DRG 690 ==
LOC: 2ANU 10:58 → EMEROO 10:58 → SUATTDRO 16:19 → 2ANU 16:54
PROVIDERS: ADMIT Internal Medicine; ATTEND Internal Medicine